=== PATIENT | female | born 1985 | race Caucasian/White ===

== ENCOUNTER → 2019-07-04 | Outpatient (CLI) | payer OTHER, SELFPAY | PROVIDERS: Family Provider Internal Medicine; Visit Provider Internal Medicine Hematology & Oncology | DX: C50.811 Malignant neoplasm of overlapping sites of right female breast (principal); C77.3 Secondary and unspecified malignant neoplasm of axilla and upper limb lymph nodes; Z17.0 Estrogen receptor positive status [ER+]; Z79.811 Long term (current) use of aromatase inhibitors; Z90.13 Acquired absence of bilateral breasts and nipples; Z92.3 Personal history of irradiation; Z92.21 Personal history of antineoplastic chemotherapy | CPT/HCPCS: 36591; 80053; 85025; 99214; J1642 ==

== ENCOUNTER 2020-01-19 15:35 | Outpatient (CLI) | payer BC, SELFPAY ==
--- NOTE | 2020-01-19 16:34 | ONC FU_ITS ---
Dr. Biggs follow up note Patient: Viviana Buckner Unit #: [id number]: 1985 Dicatated By: Corey Biggs M.D.Date of Visit:Jan 19, 2020 Onc Med Follow-up/Prog Note History of Present Illness: Sita Saenz is a 34-year-old female with history of right breast mass for 3 months. She underwent mammogram which showed a spiculated mass at 12:00 position of right breast and 1.5 cm mass in right axilla. Ultrasonogram of the right breast showed 4.2 cm mass at 12:00 position with 1.5 cm right axillary lymph node. On September 19, 2016, Mrs Buckner underwent ultrasound directed needle biopsy of the right breast. The pathology showed infiltrating ductal carcinoma grade 1 and right axillary lymph node biopsy shows positive for metastatic adenocarcinoma. ER positive @ 98%, ND positive @ 97%; HER-2/gregg negative (1+ per Qualitative IHC); Ki-67 35% high risk. CT PET scan done on 03/03/2017 showed marked increase of metabolic activity in the right breast; A single right superficial axillary lymph node shows metastatic involvement and no evidence of distant metastases. Mrs Buckner underwent bilateral mastectomy, with planned reconstruction. She currently has expanders. She is now considering bilateral salpingo-oophorectomy And/or hysterectomy. She began chemotherapy with dose dense doxorubicin and cyclophosphamide on 06/10/2017. She did complete 4 cycles and has transitioned to weekly paclitaxel with her first of twelve weeks starting on 08/12/2017. She has tolerated it well ,Finished her treatment on 11/11/2017 and start on tamoxifen 20 mg by mouth daily on 12/15/2017 status post post mastectomy radiation therapy patient recently underwent prophylactic/therapeutic bilateral oophorectomy and hysterectomy on 02/02/2018.Switched to Arimidex 1 mg by mouth daily on 06/30/2018 from tamoxifen.Later on switched to Aromasin.And 07/04/2019 again, at patient request she was switched back to Arimidex as patient said she had less side effect with Arimidex compared to Aromasin.Stop taking Arimidex on January 14, 2020 because of related side effects like generalized weakness and fatigue and musculoskeletal discomfort, weight gain, mood swings Interim history, 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 s/p right breast reconstruction and went to her original plastic surgeon in [facility]. Came for follow-up, denies any specific complaint except generalized weakness and fatigue and musculoskeletal discomfort, mood swings, as per patient her father is on hospice and has 5 kids to take care of including one with Asperger and going through emotions but denies any self harming thoughts. Because of all the side effects she decided to quit Arimidex on Thursday, January 14, 2020. Medications: Arimidex 1 Tablet (of 1 mg) Oral daily, cloNIDine HCl 1 Tablet (of 0.1 mg) Oral daily, hydrOXYzine HCl 1 Tablet (of 25 mg) Oral daily, Pristiq 1 Tablet (of 100 mg) Tablet SR 24 HR Oral daily, Propranolol HCl 1 Tablet (of 20 mg) Oral daily, Xyzal 1 Tablet (of 5 mg) Oral daily Allergies: No Known Allergies. Review of Systems: Constitutional - Her energy level is good. Appetite is good and weight is stable. No fever, chills, hot flashes, ENMT - No sinus congestion/drainage. No mouth sores. No sore throat or difficulty swallowing, Hematologic/Lymphatic - No abnormal bruising or bleeding, Respiratory - No shortness of breath. No cough. No pleuritic pain, Cardiovascular - No angina pain, Gastrointestinal - No nausea or vomiting. No heartburn or acid reflux. No diarrhea or constipation. No blood in the stool or black stools, Genitourinary (F) - No dysuria or hematuria. No urinary frequency. No urgency or incontinence, Musculoskeletal - No joint or bone pain, Neurologic - No headache or dizziness. No numbness/paresthesias or other focal neurologic symptoms, Psychiatric - No anxiety or depression. No insomnia. Vital Signs: Performed on Jan 19, 2020 15:46 Height - 65.00 in Weight - 188.0 lbs (HIGH) BSA - 1.93 sq.m BMI - 31.29 (HIGH) Temperature - 98.1 F (LOW) Pulse - 86 /min Respiration - 18 /min BP - 120/80 mm(hg) O2 Sat - 98 % Pain - 0 Performance Status: 0 - Fully active, able to carry on all predisease activities without restrictions. (ECOG) Physical Examination: Respiratory - Lungs are clear, Cardiovascular - Regular rate and rhythm of heart, Gastrointestinal - Soft, bowel sounds present, Extremities - No visible edema or rash. Lab/Imaging: Most recent lab results are not available for this patient. Impression: two foci of invasive ductal carcinoma, 2.7 cm and 0.7 cm in greatest dimension. Largest tumor focus is poorly differentiated, smaller tumor focus is moderately differentiated, margins free of carcinoma one out of 16 nodes positive for metastatic invasive ductal carcinoma metastatic focus is 1.7 cm in greatest dimension with extracapsular extension. Status post bilateral modified radical mastectomy now with expanders done on 04/30/2017 Pathological stage mpT2, N1a (extracapsular extension) IIB. Estrogen receptor 98%, progesterone receptors 82%, HER-2/gregg 1+ adjuvant chemotherapy with Adriamycin Cytoxan ???4, started on 06/08/2017 to 07/22/2017 in dose dense fashion , switched to weekly Taxol ???12 on 08/12/2017.till 11/11/17 s/p postmastectomy radiation therapy. Started on tamoxifen 20 mg by mouth daily on 12/15/2017 Later on on 06/30/2018 she was switched to Arimidex after she underwent prophylactic bilateral salpingo-oophorectomy and hysterectomy on 02/02/2018. Patient tried Arimidex for many months then it was held for one month because of progressive symptoms including hot flashes and generalized weakness and fatigue and muscle skeleton pain with that her symptoms improves somewhat and later on Arimidex was discontinued and switched to Aromasin. Then 07/04/2019 at patient request she was switched back to Arimidex as she thought Arimidex was better tolerated Status post prophylactic/therapeutic bilateral oophorectomy/hysterectomy done on 02/02/2018. Episode of palpitation etiology unclear could be due to anxiety or underlying cardiac pathology. Cardiac workup is in progress scheduled for cardiac monitoring and echocardiogram. Echocardiogram done on 09/04/2017 showed normal left ventricle size and ejection fraction. Headaches and chronic insomnia: unknown etiology ,could be due to steroids or stress/anxiety as a CT scan of head was done on 09/04/2017 showed no abnormality. Plan: Discussed with patient regarding her concerns and issues related to aromatase inhibitors, possible etiologies multifactorial including underlying stress due to his personal situation like her father is under hospice care and other possibility could be due to hormonal withdrawals further exacerbated by aromatase inhibitors. At this point will hold Arimidex for 2 more weeks and if there is no improvement in her symptoms then will consider restarting Arimidex and also recommended behavioral health evaluation, patient to think about. Patient will call us in 2 weeks, to decide whether to continue with Arimidex or may switch her to Aromasin for a month if tolerated then will continue same otherwise may try Femara. In the meantime we will flush her Port-A-Cath today and also draw her baseline CBC CMP and TSH And return to clinic in 6 weeks for follow-up Signed By: Corey Biggs M.D. <<Signature on File>>
[2020-01-19 17:14] LABS: Basophils # 0.1 10^3/uL (0.0-0.1); Basophils % 0.7 %; Eosinophils # 0.3 10^3/uL (0.0-0.8); Eosinophils % 2.7 %; Hematocrit 40.2 % (37.0-47.0); Hemoglobin 12.8 g/dL (11.5-15.3); Lymphocytes # 2.6 10^3/uL (0.8-4.8); Lymphocytes % 25.4 %; Mean Corpuscular HGB Conc 31.8 g/dL (30.0-36.0); Mean Corpuscular Hemoglobin 26.2 pg (28.0-34.0); Mean Corpuscular Volume 82.2 fL (81-99); Mean Platelet Volume 9.5 fL (7.4-10.4); Monocytes # 0.7 10^3/uL (0.2-0.9); Neutrophils # 6.46 10^3/uL (1.8-7.7); Neutrophils % 63.2 %; Nucleated Red Blood Cells % 0 %; Platelet Count 364 10^3/cmm (130-400); Red Blood Count 4.89 10^6/uL (4.1-5.3); Red Cell Distribution Width 13.6 % (12.1-15.1); White Blood Count 10.2 10^3/uL (4.0-10.0)
[2020-01-19 17:59] LABS: Alanine Aminotransferase 33 U/L (0-33); Albumin Level 4.6 g/dL (3.5-5.2); Alkaline Phosphatase 114 IU/L (35-105); Anion Gap 14.9 (5-19); Aspartate Amino Transferase 29 U/L (0-32); Blood Urea Nitrogen 12 mg/dL (6-20); Calcium 9.5 mg/dL (8.5-10.5); Carbon Dioxide 26 mmol/L (22-29); Chloride 101 mmol/L (98-107); Globulin 2.7 g/dL (1.3-4.6); Glomerular Filtration Rate 95.2 mL/min (90-130); Glucose 91 mg/dL (65-115); Osmolality Calculated 282 mOsm/kg (285-295); Potassium 3.9 mmol/L (3.5-5.1); Sodium 138 mmol/L (136-145); Thyroid Stimulating Hormone 0.99 uIU/mL (0.27-4.20); Total Bilirubin 0.2 mg/dL (0.15-1.2); Total Protein 7.3 g/dL (6.6-8.7)
== END 2020-01-19 15:36 | disposition home or self-care (01) ==
LOC: ONCMED 15:40
PROVIDERS: PCP Internal Medicine; Visit Provider Internal Medicine Hematology & Oncology
DX: C50.811 Malignant neoplasm of overlapping sites of right female breast (principal); C77.3 Secondary and unspecified malignant neoplasm of axilla and upper limb lymph nodes; Z17.0 Estrogen receptor positive status [ER+]; Z79.899 Other long term (current) drug therapy; Z79.811 Long term (current) use of aromatase inhibitors; Z92.3 Personal history of irradiation; Z92.21 Personal history of antineoplastic chemotherapy; Z90.13 Acquired absence of bilateral breasts and nipples
CPT/HCPCS: 36415; 80053; 84443; 85025; 96523; 99214

== ENCOUNTER 2020-03-01 15:26 | Outpatient (CLI) | payer BC, SELFPAY ==
--- NOTE | 2020-03-01 16:44 | ONC FU_ITS ---
Dr. Biggs follow up note Patient: Viviana Buckner Unit #: [id number]: 1985 Dicatated By: Corey Biggs M.D.Date of Visit:Mar 01, 2020 Onc Med Follow-up/Prog Note History of Present Illness: Sita Saenz is a 34-year-old female with history of right breast mass for 3 months. She underwent mammogram which showed a spiculated mass at 12:00 position of right breast and 1.5 cm mass in right axilla. Ultrasonogram of the right breast showed 4.2 cm mass at 12:00 position with 1.5 cm right axillary lymph node. On September 19, 2016, Mrs Buckner underwent ultrasound directed needle biopsy of the right breast. The pathology showed infiltrating ductal carcinoma grade 1 and right axillary lymph node biopsy shows positive for metastatic adenocarcinoma. ER positive @ 98%, DE positive @ 97%; HER-2/gregg negative (1+ per Qualitative IHC); Ki-67 35% high risk. CT PET scan done on 03/03/2017 showed marked increase of metabolic activity in the right breast; A single right superficial axillary lymph node shows metastatic involvement and no evidence of distant metastases. Mrs Buckner underwent bilateral mastectomy, with planned reconstruction. She currently has expanders. She is now considering bilateral salpingo-oophorectomy And/or hysterectomy. She began chemotherapy with dose dense doxorubicin and cyclophosphamide on 06/10/2017. She did complete 4 cycles and has transitioned to weekly paclitaxel with her first of twelve weeks starting on 08/12/2017. She has tolerated it well ,Finished her treatment on 11/11/2017 and start on tamoxifen 20 mg by mouth daily on 12/15/2017 status post post mastectomy radiation therapy patient recently underwent prophylactic/therapeutic bilateral oophorectomy and hysterectomy on 02/02/2018.Switched to Arimidex 1 mg by mouth daily on 06/30/2018 from tamoxifen.Later on switched to Aromasin.And 07/04/2019 again, at patient request she was switched back to Arimidex as patient said she had less side effect with Arimidex compared to Aromasin.Stop taking Arimidex on January 14, 2020 because of related side effects like generalized weakness and fatigue and musculoskeletal discomfort, weight gain, mood swings Interim history, 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 s/p right breast reconstruction and went to her original plastic surgeon in [facility]. Came for follow-up, denies any specific complaints, no fever chills, no nausea or vomiting, no diarrhea constipation, mood swings is also improving with Cymbalta, patient says she also started taking her Arimidex week after her last visit and has been tolerated well since then with occasionally hot flashes, sometimes maculopapular rash on upper neck and over shoulders but now clearing up.And also requesting Port-A-Cath removal Medications: Arimidex 1 Tablet (of 1 mg) Oral daily, cloNIDine HCl 1 Tablet (of 0.1 mg) Oral daily, DULoxetine HCl 1 Capsule (of 60 mg) Capsule Delayed Release Particles Oral daily, hydrOXYzine HCl 1 Tablet (of 25 mg) Oral daily, Pristiq 1 Tablet (of 100 mg) Tablet SR 24 HR Oral daily, Propranolol HCl 1 Tablet (of 20 mg) Oral daily, Xyzal 1 Tablet (of 5 mg) Oral daily Allergies: No Known Allergies. Review of Systems: Constitutional - Her energy level is good. Appetite is good and weight is stable. No fever, chills. Rare hot flashes, ENMT - No sinus congestion/drainage. No mouth sores. No sore throat or difficulty swallowing, Hematologic/Lymphatic - No abnormal bruising or bleeding, Respiratory - No shortness of breath. No cough. No pleuritic pain, Cardiovascular - No angina pain, Gastrointestinal - No nausea or vomiting. No heartburn or acid reflux. No diarrhea or constipation. No blood in the stool or black stools, Genitourinary (F) - No dysuria or hematuria. No urinary frequency. No urgency or incontinence, Musculoskeletal - No joint or bone pain, Neurologic - No headache or dizziness. No numbness/paresthesias or other focal neurologic symptoms, Psychiatric - No anxiety or depression. No insomnia. Vital Signs: Performed on Mar 01, 2020 15:37 Height - 65.00 in Weight - 188.2 lbs (HIGH) BSA - 1.93 sq.m BMI - 31.32 (HIGH) Temperature - 97.9 F (LOW) Pulse - 66 /min Respiration - 20 /min BP - 126/69 mm(hg) O2 Sat - 97 % Pain - 0 Performance Status: 0 - Fully active, able to carry on all predisease activities without restrictions. (ECOG) Physical Examination: Respiratory - Lungs are clear, Cardiovascular - Regular rate and rhythm of heart, Gastrointestinal - Soft bowel sounds present, Extremities - No edema. Lab/Imaging: Test performed on Jan 19, 2020 16:40 Sodium 138 mmol/L TSH 0.99 uIU/mL Potassium 3.9 mmol/L Chloride 101 mmol/L CO2 26 mmol/L Anion Gap 14.9 BUN 12 mg/dL Creatinine 0.7 mg/dL Cr Clearance (Est) 151.0100 mL/min eGFR 95.2 mL/min Glucose 91 mg/dL Calcium 9.5 mg/dL Protein, Total 7.3 g/dL Albumin 4.6 g/dL Globulin 2.7 g/dL Bilirubin, Total 0.2 mg/dL ALT (SGPT) 33 U/L AST (SGOT) 29 U/L Alkaline Phosphatase 114 IU/L WBC 10.2 10 3/uL RBC 4.89 10 6/uL HGB 12.8 g/dL HCT 40.2 % MCV 82.2 fL MCH 26.2 pg MCHC 31.8 g/dL RDW 13.6 % Platelet Count 364 10 3/cmm MPV 9.5 fL Neutrophils 6.46 10 3/uL Lymphocytes 2.6 10 3/uL Monocytes 0.7 10 3/uL Eosinophils 0.3 10 3/uL Basophils 0.1 10 3/uL Neutrophil % 63.2 % Lymphocyte % 25.4 % Monocyte % 7.0 % Eosinophil % 2.7 % Basophils % 0.7 % NRBC % 0 % Impression: two foci of invasive ductal carcinoma, 2.7 cm and 0.7 cm in greatest dimension. Largest tumor focus is poorly differentiated, smaller tumor focus is moderately differentiated, margins free of carcinoma one out of 16 nodes positive for metastatic invasive ductal carcinoma metastatic focus is 1.7 cm in greatest dimension with extracapsular extension. Status post bilateral modified radical mastectomy now with expanders done on 04/30/2017 Pathological stage mpT2, N1a (extracapsular extension) IIB. Estrogen receptor 98%, progesterone receptors 82%, HER-2/gregg 1+ adjuvant chemotherapy with Adriamycin Cytoxan ???4, started on 06/08/2017 to 07/22/2017 in dose dense fashion , switched to weekly Taxol ???12 on 08/12/2017.till 11/11/17 s/p postmastectomy radiation therapy. Started on tamoxifen 20 mg by mouth daily on 12/15/2017 Later on on 06/30/2018 she was switched to Arimidex after she underwent prophylactic bilateral salpingo-oophorectomy and hysterectomy on 02/02/2018. Patient tried Arimidex for many months then it was held for one month because of progressive symptoms including hot flashes and generalized weakness and fatigue and muscle skeleton pain with that her symptoms improves somewhat and later on Arimidex was discontinued and switched to Aromasin. Then 07/04/2019 at patient request she was switched back to Arimidex as she thought Arimidex was better tolerated Status post prophylactic/therapeutic bilateral oophorectomy/hysterectomy done on 02/02/2018. Episode of palpitation etiology unclear could be due to anxiety or underlying cardiac pathology. Cardiac workup is in progress scheduled for cardiac monitoring and echocardiogram. Echocardiogram done on 09/04/2017 showed normal left ventricle size and ejection fraction. Headaches and chronic insomnia: unknown etiology ,could be due to steroids or stress/anxiety as a CT scan of head was done on 09/04/2017 showed no abnormality. Plan: Discussed with patient regarding her question and concern about hormonal therapy and Port-A-Cath maintenance, at patient's request we will refer her to surgery for Port-A-Cath removal. In the meantime patient is tolerating Arimidex well so we will continue for total 5 years. And also advised to take vitamin D/calcium supplements. She return to clinic in 6 months with CMP. Signed By: Corey Biggs M.D. <<Signature on File>>
== END 2020-03-01 15:27 | disposition home or self-care (01) ==
LOC: ONCMED 15:26
PROVIDERS: PCP Internal Medicine; Visit Provider Internal Medicine Hematology & Oncology
DX: C50.811 Malignant neoplasm of overlapping sites of right female breast (principal); Z17.0 Estrogen receptor positive status [ER+]; C77.3 Secondary and unspecified malignant neoplasm of axilla and upper limb lymph nodes; R51 Headache; F51.04 Psychophysiologic insomnia; Z90.13 Acquired absence of bilateral breasts and nipples; Z79.811 Long term (current) use of aromatase inhibitors; Z95.828 Presence of other vascular implants and grafts
CPT/HCPCS: 99214

== ENCOUNTER → 2020-06-06 18:53 | Outpatient (BNVA) | payer BC, SELFPAY | PROVIDERS: PCP Internal Medicine; Visit Provider Surgery | DX: Z95.828 Presence of other vascular implants and grafts (principal) | CPT/HCPCS: 87635 ==

== ENCOUNTER 2020-06-11 07:04 | Day surgery (SDC) | payer BC, SELFPAY ==
[2020-06-08 12:04] VITALS: BMI 32.1
--- NOTE | 2020-06-11 07:23 | W.PM.OPSUD ---
Surgery/Procedure H&P Update DATE OF PROCEDURE: June 11, 2020 DATE H&P PERFORMED: 06/04/20 H&P UPDATE INFORMATION: I have reviewed H&P completed within last 30 days, I have examined patient prior to procedure and No changes to prior documentation PREOP DIAGNOSIS: Removal of Mediport PLANNED PROCEDURE: Operation Date: 06/11/20 09:30 Proposed Procedures p Portacath Removal [id number] c50.911(Not Applicable) - Zion Villa MD
[2020-06-11 07:36] VITALS: BP 139/88; PULSE 77; RESP 16; TEMP 36.4; O2SAT 97
[2020-06-11] MEDS: sodium chloride 0.9% 1,000 ML 30 ML IV (07:59)
--- NOTE | 2020-06-11 08:08 | ANES.PREANE2 ---
Pre-Anesthetic Assessment Pre-Anesthetic Assessment: Height/Weight: Height 1.65 m Weight 87.543 kg Temp Pulse Resp BP Pulse Ox 97.6 F 77 16 139/88 97 06/11/20 07:36 06/11/20 07:36 06/11/20 07:36 06/11/20 07:36 06/11/20 07:36 Preop Diagnosis: Removal of Mediport Proposed Procedure: Operation Date: 06/11/20 09:30 Proposed Procedures p Portacath Removal 99242 c50.911(Not Applicable) - Zion Villa MD Was Beta Bela taken within 24 hours: Yes Last intake: Intake Last Liquid Date 06/10/20 Last Liquid Time 22:00 Last Solid Date 06/10/20 Last Solid Time 19:00 Social: Social History: No alcohol and No tobacco Exam: Pre-Anes Outpt Exam: alert, oriented x 3, clear to auscultation bilaterally and regular rate & rhythm Airway: Submandibular: WNL Cervical ROM: WNL MP: 2 Dentition: Full Pulmonary: Pulmonary: None reported CV/HEM: CV/HEM: HTN : : None reported Hepatic: Hepatic: None reported GI: GI: None reported Metabolic: Metabolic: None reported Musc/skel: Musc/skel: None reported Neuropsych: Neuropsych: None reported Anesthetic Plan: ASA status: 2 Anesthesia: MAC Risk of > 500 ml blood loss (7ml/kg in children): No Meds/Allergies Current Medications: Current Medications Generic Name Dose Route Start Last Admin Trade Name Freq PRN Reason Stop Dose Admin Sodium Chloride 1,000 mls @ 30 ml s/hr 06/11/20 07:30 06/11/20 07:59 Sodium Chloride 0.9% IV 30 mls/hr .Q24H MESSI Administration PFSH Anesthesia PFSH: Medical History Breast cancer, right Essential tremor H/O malignant neoplasm of breast Surgical History H/O bilateral mastectomy 2016 H/O breast reconstruction LD flap on the right H/O section H/O oral surgery History of tonsillectomy Hx of cholecystectomy Port-A-Cath in place S/P OUSMANE-BSO Family History Father CAD (coronary artery disease) Diabetes Hypertension Mother Cancer endometrial cancer Grandmother Cancer maternal colon and ovarian Brother Hypertension Denies family history of Anesthesia complication Bleeding disorder Social History Smoking and tobacco status: current every day smoker Alcohol intake: never Household members: spouse Marital status: Current occupational status: employed History of recent travel: No Data Anesthesia Cardiac Studies: No Data to Display
[2020-06-11] MEDS: midazolam 1 mg/mL INJ 2 mL 2 MG IVP ×2 (08:11→10:13)
[2020-06-11] MEDS: lidocaine 1% INJ 20 mL (09:28)
[2020-06-11 09:44] VITALS: BP 113/73; PULSE 72; RESP 16; TEMP 36.2; O2SAT 97
--- NOTE | 2020-06-11 10:13 | SUR.PHASEII ---
PT C/O ANXIETY. OBTAINED ORDER FOR 2MG VERSED IV PUSH BY DR SARMIENTO.
[2020-06-11 10:21] VITALS: BP 143/99; PULSE 76; RESP 16; O2SAT 96
--- NOTE | 2020-06-11 12:42 | PM.OP ---
Operative Report Date of procedure: June 11, 2020 Pre-op Diagnosis: Removal of Mediport Post-op Diagnosis: 1: Breast cancer status post chemotherapy 2: Removal of Mediport Procedure Done: Removal of Mediport from the left subclavian vein Pathology: none sent Surgeon: Zion Villa Anesthesia: MAC Condition: stable Disposition: PACU Procedure: Patient was taken to the operating room and her right chest was prepped and draped in a sterile manner. 20 mL of 1% lidocaine with 0.5% Marcaine was infiltrated around the MediPort and catheter in the left subclavian vein. Using a 15 blade the previous incision was opened, the subcutaneous tissue was divided using electrocautery and MediPort along the catheter was dissected free from the surrounding subcutaneous tissue and removed entirely. The wound was irrigated with saline, hemostasis ensured with electrocautery and subcutaneous tissue was approximated using 3-0 Vicryl suture and skin was closed using running subcuticular 4-0 Monocryl suture. The patient was transferred to the recovery room in stable condition.
--- NOTE | 2020-06-11 15:49 | ANE.PACU2 ---
Inpatient post-anesthesia follow up: Airway intact: Yes Vital signs: Temperature 97.2 F Pulse Rate 76 Respiratory Rate 16 Blood Pressure 143/99 Pulse Oximetry 96 Oxygen Delivery Me thod Room Air Oxygen Flow Rate Fraction of Inspir ed Oxygen Hydration adequate: Yes Nausea and vomiting: No Pain level: 1 Mental status: Baseline
== END 2020-06-11 10:29 | disposition home or self-care (01) ==
PROVIDERS: PCP Internal Medicine; Visit Provider Surgery
PROC: (CPT 36589; principal; 2020-06-11 08:30)
DX: Z45.2 Encounter for adjustment and management of vascular access device (principal); Z85.3 Personal history of malignant neoplasm of breast; I10 Essential (primary) hypertension; Z82.49 Family history of ischemic heart disease and other diseases of the circulatory system; Z83.3 Family history of diabetes mellitus; Z80.0 Family history of malignant neoplasm of digestive organs; Z80.41 Family history of malignant neoplasm of ovary; F17.210 Nicotine dependence, cigarettes, uncomplicated
CPT/HCPCS: 36590; 12345; J0690; J2250; J2704; J3490; J7030

== ENCOUNTER 2020-09-06 09:08 | Outpatient (CLI) | payer BC, SELFPAY ==
[2020-09-06 10:03] LABS: Basophils # 0.1 10^3/uL (0.0-0.1); Basophils % 1.2 %; Eosinophils # 0.4 10^3/uL (0.0-0.8); Eosinophils % 4.2 %; Hematocrit 43.2 % (37.0-47.0); Hemoglobin 13.9 g/dL (11.5-15.3); Lymphocytes # 1.9 10^3/uL (0.8-4.8); Lymphocytes % 21.6 %; Mean Corpuscular HGB Conc 32.2 g/dL (30.0-36.0); Mean Corpuscular Hemoglobin 26.9 pg (28.0-34.0); Mean Corpuscular Volume 83.7 fL (81-99); Mean Platelet Volume 9.5 fL (7.4-10.4); Monocytes # 0.5 10^3/uL (0.2-0.9); Monocytes % 5.6 %; Neutrophils # 5.93 10^3/uL (1.8-7.7); Neutrophils % 66.9 %; Nucleated Red Blood Cells % 0 %; Platelet Count 437 10^3/cmm (130-400); Red Blood Count 5.16 10^6/uL (4.1-5.3); Red Cell Distribution Width 13.2 % (12.1-15.1); White Blood Count 8.9 10^3/uL (4.0-10.0)
[2020-09-06 10:04] LABS: Alanine Aminotransferase 20 U/L (0-33); Albumin Level 4.6 g/dL (3.5-5.2); Alkaline Phosphatase 114 IU/L (35-105); Anion Gap 13.5 (5-19); Aspartate Amino Transferase 19 U/L (0-32); Blood Urea Nitrogen 11 mg/dL (6-20); Calcium 9.8 mg/dL (8.5-10.5); Carbon Dioxide 28 mmol/L (22-29); Chloride 101 mmol/L (98-107); Globulin 3.1 g/dL (1.3-4.6); Glomerular Filtration Rate 70.8 mL/min (90-130); Glucose 107 mg/dL (65-115); Osmolality Calculated 288 mOsm/kg (285-295); Potassium 3.5 mmol/L (3.5-5.1); Sodium 139 mmol/L (136-145); Total Bilirubin 0.3 mg/dL (0.15-1.2); Total Protein 7.7 g/dL (6.6-8.7)
--- NOTE | 2020-09-06 16:13 | ONC FU_ITS ---
Dr. Biggs follow up note Patient: Viviana Buckner Unit #: [id number]: 1985 Dicatated By: Corey Biggs M.D.Date of Visit:Sep 06, 2020 Onc Med Follow-up/Prog Note History of Present Illness: Sita Saenz is a 35-year-old female with history of right breast mass for 3 months. She underwent mammogram which showed a spiculated mass at 12:00 position of right breast and 1.5 cm mass in right axilla. Ultrasonogram of the right breast showed 4.2 cm mass at 12:00 position with 1.5 cm right axillary lymph node. On September 19, 2016, Mrs Buckner underwent ultrasound directed needle biopsy of the right breast. The pathology showed infiltrating ductal carcinoma grade 1 and right axillary lymph node biopsy shows positive for metastatic adenocarcinoma. ER positive @ 98%, [place] positive @ 97%; HER-2/gregg negative (1+ per Qualitative IHC); Ki-67 35% high risk. CT PET scan done on 03/03/2017 showed marked increase of metabolic activity in the right breast; A single right superficial axillary lymph node shows metastatic involvement and no evidence of distant metastases. Mrs Buckner underwent bilateral mastectomy, with planned reconstruction. She currently has expanders. She is now considering bilateral salpingo-oophorectomy And/or hysterectomy. She began chemotherapy with dose dense doxorubicin and cyclophosphamide on 06/10/2017. She did complete 4 cycles and has transitioned to weekly paclitaxel with her first of twelve weeks starting on 08/12/2017. She has tolerated it well ,Finished her treatment on 11/11/2017 and start on tamoxifen 20 mg by mouth daily on 12/15/2017 status post post mastectomy radiation therapy patient recently underwent prophylactic/therapeutic bilateral oophorectomy and hysterectomy on 02/02/2018.Switched to Arimidex 1 mg by mouth daily on 06/30/2018 from tamoxifen.Later on switched to Aromasin.And 07/04/2019 again, at patient request she was switched back to Arimidex as patient said she had less side effect with Arimidex compared to Aromasin.Stop taking Arimidex on January 14, 2020 because of related side effects like generalized weakness and fatigue and musculoskeletal discomfort, weight gain, mood swings Interim history, 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 s/p right breast reconstruction and went to her original plastic surgeon in [facility]. Came for follow-up, denies any specific complaints, no fever chills, no nausea or vomiting, no diarrhea or constipation, no new bony pains, appetite is good, occasionally hot flashes, otherwise tolerating Arimidex well but noncompliant with vitamin D and calcium. Medications: Arimidex 1 Tablet (of 1 mg) Oral daily, cloNIDine HCl 1 Tablet (of 0.1 mg) Oral daily, DULoxetine HCl 1 Capsule (of 60 mg) Capsule Delayed Release Particles Oral daily, Propranolol HCl 1 Tablet (of 20 mg) Oral daily, traZODone HCl (50 mg) Tablet Oral at bedtime Allergies: No Known Allergies. Review of Systems: Review of Systems is not available for this patient. Vital Signs: Performed on Sep 06, 2020 15:40 Height - 65.00 in Weight - 188.4 lbs (HIGH) BSA - 1.93 sq.m BMI - 31.35 (HIGH) Temperature - 97.3 F (LOW) Pulse - 96 /min Respiration - 18 /min BP - 134/73 mm(hg) O2 Sat - 97 % Pain - 0 Fatigue - 0 Performance Status: 0 - Fully active, able to carry on all predisease activities without restrictions. (ECOG) Physical Examination: Respiratory - Lungs are clear to auscultation, Cardiovascular - Regular rate and rhythm of heart, Gastrointestinal - Soft, bowel sounds present, Extremities - No visible edema or rash. Lab/Imaging: Most recent lab results are not available for this patient. Impression: two foci of invasive ductal carcinoma, 2.7 cm and 0.7 cm in greatest dimension. Largest tumor focus is poorly differentiated, smaller tumor focus is moderately differentiated, margins free of carcinoma one out of 16 nodes positive for metastatic invasive ductal carcinoma metastatic focus is 1.7 cm in greatest dimension with extracapsular extension. Status post bilateral modified radical mastectomy now with expanders done on 04/30/2017 Pathological stage mpT2, N1a (extracapsular extension) IIB. Estrogen receptor 98%, progesterone receptors 82%, HER-2/gregg 1+ adjuvant chemotherapy with Adriamycin Cytoxan ???4, started on 06/08/2017 to 07/22/2017 in dose dense fashion , switched to weekly Taxol ???12 on 08/12/2017.till 11/11/17 s/p postmastectomy radiation therapy. Started on tamoxifen 20 mg by mouth daily on 12/15/2017 Later on on 06/30/2018 she was switched to Arimidex after she underwent prophylactic bilateral salpingo-oophorectomy and hysterectomy on 02/02/2018. Patient tried Arimidex for many months then it was held for one month because of progressive symptoms including hot flashes and generalized weakness and fatigue and muscle skeleton pain with that her symptoms improves somewhat and later on Arimidex was discontinued and switched to Aromasin. Then 07/04/2019 at patient request she was switched back to Arimidex as she thought Arimidex was better tolerated Status post prophylactic/therapeutic bilateral oophorectomy/hysterectomy done on 02/02/2018. Episode of palpitation etiology unclear could be due to anxiety or underlying cardiac pathology. Cardiac workup is in progress scheduled for cardiac monitoring and echocardiogram. Echocardiogram done on 09/04/2017 showed normal left ventricle size and ejection fraction. Headaches and chronic insomnia: unknown etiology ,could be due to steroids or stress/anxiety as a CT scan of head was done on 09/04/2017 showed no abnormality. Plan: .Discussed with patient regarding her labs white blood count 8.9 hemoglobin 13.9 hematocrit 43.2 platelets 7000 CMP within normal limits except alk phos 114 Clinically, patient doing well with no new signs symptom suggestive of recurrence of disease. Patient is tolerating her Arimidex well but she is noncompliant with vitamin D and calcium, patient is advised to continue with Arimidex along with vitamin D and calcium and then return to clinic in 6 months if alk phos continues to go up may consider bone scan although patient denies any bony pains or musculoskeletal discomfort. Patient also had her Port-A-Cath removed since her last visit Signed By: Corey Biggs M.D. <<Signature on File>>
== END 2020-09-06 09:09 | disposition home or self-care (01) ==
PROVIDERS: PCP Internal Medicine; Visit Provider Internal Medicine Hematology & Oncology
DX: C50.811 Malignant neoplasm of overlapping sites of right female breast (principal); Z17.0 Estrogen receptor positive status [ER+]; C77.3 Secondary and unspecified malignant neoplasm of axilla and upper limb lymph nodes; R51.9 Headache, unspecified; F51.04 Psychophysiologic insomnia; Z79.811 Long term (current) use of aromatase inhibitors; Z90.13 Acquired absence of bilateral breasts and nipples; Z92.3 Personal history of irradiation
CPT/HCPCS: 36415; 80053; 85025; 99214

== ENCOUNTER 2021-03-13 08:08 | Outpatient (CLI) | payer BC, SELFPAY ==
[2021-03-13 09:03] LABS: Basophils # 0.1 10^3/uL (0.0-0.1); Basophils % 1.4 %; Eosinophils # 0.2 10^3/uL (0.0-0.8); Eosinophils % 3.8 %; Hematocrit 39.4 % (37.0-47.0); Hemoglobin 13.1 g/dL (11.5-15.3); Lymphocytes # 1.6 10^3/uL (0.8-4.8); Lymphocytes % 24.8 %; Mean Corpuscular HGB Conc 33.2 g/dL (30.0-36.0); Mean Corpuscular Hemoglobin 28.1 pg (28.0-34.0); Mean Corpuscular Volume 84.5 fl (81-99); Mean Platelet Volume 9.3 fL (7.4-10.4); Monocytes # 0.5 10^3/uL (0.2-0.9); Monocytes % 7.8 %; Neutrophils # 3.91 10^3/uL (1.8-7.7); Neutrophils % 61.9 %; Nucleated Red Blood Cells % 0 %; Platelet Count 334 10^3/cmm (130-400); Red Blood Count 4.66 10^6/uL (4.1-5.3); Red Cell Distribution Width 12.6 % (12.1-15.1); White Blood Count 6.3 10^3/uL (4.0-10.0)
[2021-03-13 09:36] LABS: Alanine Aminotransferase 14 U/L (0-33); Albumin Level 4.1 g/dL (3.5-5.2); Alkaline Phosphatase 93 IU/L (35-105); Anion Gap 14.7 (5-19); Aspartate Amino Transferase 18 U/L (0-32); Blood Urea Nitrogen 14 mg/dL (6-20); Calcium 9.1 mg/dL (8.5-10.5); Carbon Dioxide 26 mmol/L (22-29); Chloride 103 mmol/L (98-107); Globulin 2.8 g/dL (1.3-4.6); Glomerular Filtration Rate 94.7 mL/min (90-130); Glucose 86 mg/dL (65-115); Osmolality Calculated 290 mOsm/kg (285-295); Potassium 3.7 mmol/L (3.5-5.1); Sodium 140 mmol/L (136-145); Total Bilirubin 0.3 mg/dL (0.15-1.2); Total Protein 6.9 g/dL (6.6-8.7)
== END 2021-03-13 08:09 | disposition home or self-care (01) ==
LOC: ONCMED 08:10
PROVIDERS: PCP Internal Medicine; Visit Provider Internal Medicine Hematology & Oncology
DX: C50.811 Malignant neoplasm of overlapping sites of right female breast (principal); Z17.0 Estrogen receptor positive status [ER+]; Z79.811 Long term (current) use of aromatase inhibitors
CPT/HCPCS: 36415; 80053; 85025

== ENCOUNTER 2021-06-03 08:23 | Outpatient (CLI) | payer BC, SELFPAY | END 2021-06-03 08:24 | disposition home or self-care (01) | LOC: LAB 08:24 | PROVIDERS: PCP Internal Medicine; Visit Provider Family Medicine | DX: R05.9 Cough, unspecified (principal) | CPT/HCPCS: 85378 ==

== ENCOUNTER 2021-06-07 12:19 | Outpatient (CLI) | payer BC, SELFPAY ==
[2021-06-07 12:35] VITALS: BP 121/76; PULSE 107; RESP 18; TEMP 36.4; O2SAT 98; BMI 29.9
[2021-06-07] MEDS: ondansetron 2 mg/ML SDV 2 mL 4 MG IVP (12:52)
[2021-06-07 12:58] VITALS: BP 114/66; PULSE 98; RESP 18; TEMP 36.1; O2SAT 99
[2021-06-07 14:16] VITALS: BP 125/81; PULSE 111; RESP 18; TEMP 37.2; O2SAT 96
== END 2021-06-07 12:20 | disposition home or self-care (01) ==
LOC: OPS 12:20
PROVIDERS: PCP Internal Medicine; Visit Provider Nurse Practitioner Family
DX: U07.1 COVID-19 (principal)
CPT/HCPCS: 96365; 96375; J2405

== ENCOUNTER 2021-09-10 13:28 | Outpatient (CLI) | payer BC, SELFPAY ==
[2021-09-10 14:30] LABS: Basophils # 0.1 10^3/uL (0.0-0.1); Basophils % 1.2 %; Eosinophils # 0.2 10^3/uL (0.0-0.8); Eosinophils % 2.7 %; Hematocrit 41.4 % (37.0-47.0); Hemoglobin 13.7 g/dL (11.5-15.3); Lymphocytes % 26.4 %; Mean Corpuscular HGB Conc 33.1 g/dL (30.0-36.0); Mean Corpuscular Hemoglobin 28.2 pg (28.0-34.0); Mean Corpuscular Volume 85.4 fl (81-99); Mean Platelet Volume 9.3 fL (7.4-10.4); Monocytes # 0.6 10^3/uL (0.2-0.9); Monocytes % 7.2 %; Neutrophils # 4.77 10^3/uL (1.8-7.7); Nucleated Red Blood Cells % 0 %; Platelet Count 349 10^3/cmm (130-400); Red Blood Count 4.85 10^6/uL (4.1-5.3); Red Cell Distribution Width 12.6 % (12.1-15.1); White Blood Count 7.7 10^3/uL (4.0-10.0)
[2021-09-10 14:50] LABS: Alanine Aminotransferase 24 U/L (0-33); Albumin Level 4.5 g/dL (3.5-5.2); Alkaline Phosphatase 98 IU/L (35-105); Anion Gap 17.3 (5-19); Aspartate Amino Transferase 26 U/L (0-32); Blood Urea Nitrogen 17 mg/dL (6-20); Calcium 9.9 mg/dL (8.5-10.5); Carbon Dioxide 22 mmol/L (22-29); Chloride 106 mmol/L (98-107); Globulin 2.9 g/dL (1.3-4.6); Glomerular Filtration Rate 80.7 mL/min (90-130); Glucose 104 mg/dL (65-115); Osmolality Calculated 294 mOsm/kg (285-295); Potassium 4.3 mmol/L (3.5-5.1); Sodium 141 mmol/L (136-145); Total Bilirubin 0.2 mg/dL (0.15-1.2); Total Protein 7.4 g/dL (6.6-8.7)
--- NOTE | 2021-09-11 17:46 | ONC FU_ITS ---
Dr. Biggs follow up note Patient: Viviana Buckner Unit #: [id number]: 1985 Dicatated By: Corey Biggs M.D.Date of Visit:Sep 10, 2021 Onc Med Follow-up/Prog Note History of Present Illness: Sita Saenz is a 36-year-old female with history of right breast mass for 3 months. She underwent mammogram which showed a spiculated mass at 12:00 position of right breast and 1.5 cm mass in right axilla. Ultrasonogram of the right breast showed 4.2 cm mass at 12:00 position with 1.5 cm right axillary lymph node. On September 19, 2016, Mrs Buckner underwent ultrasound directed needle biopsy of the right breast. The pathology showed infiltrating ductal carcinoma grade 1 and right axillary lymph node biopsy shows positive for metastatic adenocarcinoma. ER positive @ 98%, [place] positive @ 97%; HER-2/gregg negative (1+ per Qualitative IHC); Ki-67 35% high risk. CT PET scan done on 03/03/2017 showed marked increase of metabolic activity in the right breast; A single right superficial axillary lymph node shows metastatic involvement and no evidence of distant metastases. Mrs Buckner underwent bilateral mastectomy, with planned reconstruction. She currently has expanders. She is now considering bilateral salpingo-oophorectomy And/or hysterectomy. She began chemotherapy with dose dense doxorubicin and cyclophosphamide on 06/10/2017. She did complete 4 cycles and has transitioned to weekly paclitaxel with her first of twelve weeks starting on 08/12/2017. She has tolerated it well ,Finished her treatment on 11/11/2017 and start on tamoxifen 20 mg by mouth daily on 12/15/2017 status post post mastectomy radiation therapy patient recently underwent prophylactic/therapeutic bilateral oophorectomy and hysterectomy on 02/02/2018.Switched to Arimidex 1 mg by mouth daily on 06/30/2018 from tamoxifen.Later on switched to Aromasin.And 07/04/2019 again, at patient request she was switched back to Arimidex as patient said she had less side effect with Arimidex compared to Aromasin.Stop taking Arimidex on January 14, 2020 because of related side effects like generalized weakness and fatigue and musculoskeletal discomfort, weight gain, mood swings Interim history, patient did develop complication with bilateral breast drawer in dobby loom and now, as per patient she would not consider prosthesis rather her surgeon may use her own body tissue to reconstruct her bilateral breasts. s/p right breast reconstruction and went to her original plastic surgeon in [facility]. Came for follow-up, denies any specific complaints, no fever chills, no nausea or vomiting, no diarrhea constipation, but heart flashes somewhat controlled with antidepressant duloxetine. Otherwise tolerating Arimidex/vitamin D/calcium well Medications: Arimidex 1 Tablet (of 1 mg) Oral daily, Calcium + D Tablet, chewable Oral daily, cloNIDine HCl 1 Tablet (of 0.1 mg) Oral daily, DULoxetine HCl 1 Capsule (of 60 mg) Capsule Delayed Release Particles Oral daily, Omeprazole 1 Tablet Tablet, enteric coated Oral daily, Propranolol HCl (20 mg) Tablet Oral Take as Directed, traZODone HCl (50 mg) Tablet Oral at bedtime Allergies: No Known Allergies. Review of Systems: Review of Systems is not available for this patient. Vital Signs: Performed on Sep 10, 2021 15:06 Height - 65.00 in Weight - 192.2 lbs (HIGH) BSA - 1.94 sq.m BMI - 31.98 (HIGH) Temperature - 97.4 F (LOW) Pulse - 92 /min Respiration - 16 /min BP - 140/85 mm(hg) O2 Sat - 98 % Pain - 0 Fatigue - 3 Performance Status: 0 - Fully active, able to carry on all predisease activities without restrictions. (ECOG) Physical Examination: Respiratory - Lungs are clear to auscultation, Cardiovascular - Regular rate and rhythm of heart, Gastrointestinal - Soft, bowel sounds present, Extremities - No visible edema. Lab/Imaging: Most recent lab results are not available for this patient. Impression: two foci of invasive ductal carcinoma, 2.7 cm and 0.7 cm in greatest dimension. Largest tumor focus is poorly differentiated, smaller tumor focus is moderately differentiated, margins free of carcinoma one out of 16 nodes positive for metastatic invasive ductal carcinoma metastatic focus is 1.7 cm in greatest dimension with extracapsular extension. Status post bilateral modified radical mastectomy now with expanders done on 04/30/2017 Pathological stage mpT2, N1a (extracapsular extension) IIB. Estrogen receptor 98%, progesterone receptors 82%, HER-2/gregg 1+ adjuvant chemotherapy with Adriamycin Cytoxan ???4, started on 06/08/2017 to 07/22/2017 in dose dense fashion , switched to weekly Taxol ???12 on 08/12/2017.till 11/11/17 s/p postmastectomy radiation therapy. Started on tamoxifen 20 mg by mouth daily on 12/15/2017 Later on on 06/30/2018 she was switched to Arimidex after she underwent prophylactic bilateral salpingo-oophorectomy and hysterectomy on 02/02/2018. Patient tried Arimidex for many months then it was held for one month because of progressive symptoms including hot flashes and generalized weakness and fatigue and muscle skeleton pain with that her symptoms improves somewhat and later on Arimidex was discontinued and switched to Aromasin. Then 07/04/2019 at patient request she was switched back to Arimidex as she thought Arimidex was better tolerated Status post prophylactic/therapeutic bilateral oophorectomy/hysterectomy done on 02/02/2018. Episode of palpitation etiology unclear could be due to anxiety or underlying cardiac pathology. Cardiac workup is in progress scheduled for cardiac monitoring and echocardiogram. Echocardiogram done on 09/04/2017 showed normal left ventricle size and ejection fraction. Headaches and chronic insomnia: unknown etiology ,could be due to steroids or stress/anxiety as a CT scan of head was done on 09/04/2017 showed no abnormality. Plan: Discussed with patient regarding her labs white blood count 7.7 hemoglobin 13.7 hematocrit 41.4 platelets 349,000 CMP within normal limits Clinically, patient doing well with no new signs symptoms history of recurrence of disease, tolerating Arimidex/vitamin D/calcium well, will continue with same and return to clinic in 6 months with CBC CMP As for the hot flashes are concerned patient is on duloxetine, for depression/anxiety, as per patient it is helping her some especially musculoskeletal pain and mood swings, otherwise tolerating Arimidex/vitamin D/calcium well. Signed By: Corey Biggs M.D. <<Signature on File>>
== END 2021-09-10 13:29 | disposition home or self-care (01) ==
LOC: ONCMED 13:31
PROVIDERS: PCP Internal Medicine; Visit Provider Internal Medicine Hematology & Oncology
DX: C50.811 Malignant neoplasm of overlapping sites of right female breast (principal); C50.812 Malignant neoplasm of overlapping sites of left female breast; Z17.0 Estrogen receptor positive status [ER+]; Z90.13 Acquired absence of bilateral breasts and nipples; E55.9 Vitamin D deficiency, unspecified; R51.9 Headache, unspecified; F51.04 Psychophysiologic insomnia; F41.9 Anxiety disorder, unspecified; Z79.818 Long term (current) use of other agents affecting estrogen receptors and estrogen levels; Z79.52 Long term (current) use of systemic steroids; Z79.899 Other long term (current) drug therapy; Z92.21 Personal history of antineoplastic chemotherapy; Z92.25 Personal history of immunosuppression therapy; Z92.3 Personal history of irradiation
CPT/HCPCS: 36415; 80053; 85025; 99214

== ENCOUNTER 2021-10-26 08:54 | Observation (INO) | payer BC, SELFPAY ==
[2021-10-26] VITALS (13 sets, daily range): BP systolic 114–151; BP diastolic 69–102; PULSE 86–129; RESP 14–22; TEMP 36.7–36.8; O2SAT 94–98; BMI 29.9; BMI 32.5
--- NOTE | 2021-10-26 09:39 | ED_ITS ---
Documented by User: WYATT Milan 10/26/21 14:09 HPI - Female Genitourinary General: Chief complaint: Urogenital-Female Stated complaint: possible kidney stone Time Seen by Provider: 10/26/21 09:31 Source: patient Mode of arrival: ambulatory Limitations: no limitations History of Present Illness: Patient is a 36-year-old female presents to ED today with a complaint of acute onset left lower back pain that began around 6 AM this morning. Patient tells me she has a history of kidney/ureter stones that were diagnosed when she was 18 years old and states this pain feels identical. She tells me she is not having any urinary symptoms as dysuria, hesitancy, or urgency. Later in the visit while giving a UA sample she did have hematuria. Patient feels incredibly nauseous. She states pain is wrapping around into her left lower abdomen. Normal bowel movements. Patient has not been running fevers. PMH is significant for breast cancer. MD elicited complaint: back pain and flank pain Onset (ago): hour(s) Location of symptoms: low back and flank Severity: severe Severity scale (1-10): 10 Quality of pain: sharp Consistency: constant Vaginal discharge: none Vaginal bleeding: none Exacerbating factors: none Relieving factors: none Associated symptoms: Reports abdominal pain and nausea; Deny headache(s) Treatment prior to arrival: none Patient : No Review of Systems Const: Denies: fever(s), chills, body aches, fatigue or malaise Card: Denies: chest pain Resp: Denies: dyspnea GI: Reports: abdominal pain and nausea; Denies: vomiting, hematemesis, diarrhea or change in bowel habits : Reports: flank pain and hematuria; Denies: difficulty voiding, dysuria, urinary frequency, urinary urgency or urinary hesitancy Musc: Reports: back pain; Denies: neck pain, extremity pain, extremity swelling, joint pain or joint swelling Skin/Breast: Denies: rash Neuro: Denies: headache(s), numbness in extremities, weakness in extremities, sensory changes or dizziness [facility] ED PFSH: Medical History Breast cancer, right Essential tremor H/O malignant neoplasm of breast Surgical History H/O bilateral mastectomy 2016 H/O breast reconstruction LD flap on the right H/O section H/O oral surgery History of tonsillectomy Hx of cholecystectomy Port-A-Cath in place removed 06/11/20 S/P OUSMANE-BSO Family History Father CAD (coronary artery disease) Diabetes Hypertension Mother Cancer endometrial cancer Grandmother Cancer maternal colon and ovarian Brother Hypertension Denies family history of Anesthesia complication Bleeding disorder Social History Smoking and tobacco status: current every day smoker Alcohol intake: never Household members: spouse Marital status: Current occupational status: employed History of recent travel: No Physical Exam Const: COMMON NORMALS: patient oriented x3, no limitations, alert and well nourished GENERAL APPEARANCE: cooperative and in distress (significant discomfort to L lower back/flank) HENMT: COMMON NORMALS: normocephalic and atraumatic HEAD & SCALP: normocephalic and atraumatic Resp: COMMON NORMALS: normal respiratory effort and clear to auscultation bilaterally AUSCULTATION: clear to auscultation bilaterally Cardio: COMMON NORMALS: regular rate and regular rhythm RATE: regular rate RHYTHM: regular rhythm GI: COMMON NORMALS: Normal to inspection, nondistended, normoactive bowel sounds present, Soft to palpation, No hepatosplenomegaly present and no masses AUSCULTATION: Yes normoactive bowel sounds PALPATION: Yes Soft to palpation, Yes Tenderness to palpation present (GI) (L lower abdomen) and Yes No hepatosplenomegaly present : COMMON NORMALS: Yes no CVA tenderness (tenderness below L CVA) BLADDER/KIDNEY EXAM: Yes no CVA tenderness (tenderness below L CVA) Back/Pelvis: COMMON NORMALS: no CVA tenderness (tenderness below L CVA), thoracic and lumbar spine normal to inspection and no thoracic nor lumbar tenderness Extremity: COMMON NORMALS: normal to inspection GENERAL: Yes normal exam except as noted Neuro: [place] COMA SCALE: document GCS findings [place] coma scale eye opening: Spontaneous [place] coma scale verbal response: Orientated [place] coma scale motor response: Obey commands [place] coma scale total score: 15 COMMON NORMALS: patient oriented x3 SENSORIUM/ORIENTATION: Yes alert Skin: COMMON NORMALS: no rashes or lesions noted GENERAL SKIN EXAM: no rashes or lesions noted Course Vital Signs: Vital signs: Vital Signs Pulse Rate 87 10/26/21 09:22 Respiratory Rate 14 10/26/21 14:21 Blood Pressure 151/102 10/26/21 09:22 Pulse Oximetry 94 10/26/21 14:21 MDM - Female Medical Decision Making Despite multiple doses of IV pain medications I cannot adequately control patient's pain. She states she doesn't feel like pain could be controlled at home with oral medications therefore patient will require hospitalization. She has a 4-5mm distal left ureter stone causing mild hydro. Her vitals are stable-a little hypertensive most likely secondary to pain. Labs/urine show a white count of 11.4, normal kidney functions, and suspicion for UTI based on 25-40 WBCs, 2+ bacterial, and trace leuks-will culture this. Spoke to Dr. Rojas who will admit to his service. Dr. Mina aware of patient and will place admit orders. Lab Data : 10/26/21 10:28 10/26/21 10:28 Radiology Impressions Abdomen/Pelvis CT 10/26/21 09:39 IMPRESSION: Mild left hydroureteronephrosis secondary to a 4-5 mm calculus in the distal left ureter at the level of the pelvic brim. COMMENTS: Consistent with the [employer]'s Incidental Findings Committee white paper (J Am Sharon Radiol 2018): Any incidental renal lesion less than 1 cm or classified as too small to characterize, or any incidental cystic renal lesion characterized as simple-appearing, is likely benign. No follow-up imaging is recommended for these lesions per consensus recommendations based on imaging criteria. Laboratory Results WBC 11.4 10^3/uL (4.0-10.0) H 10/26/21 10:28 RBC 5.18 10^6/uL (4.1-5.3) 10/26/21 10:28 Hgb 14.2 g/dL (11.5-15.3) 10/26/21 10:28 Hct 42.4 % (37.0-47.0) 10/26/21 10:28 MCV 81.9 fl (81-99) 10/26/21 10:28 MCH 27.4 pg (28.0-34.0) L 10/26/21 10:28 MCHC 33.5 g/dL (30.0-36.0) 10/26/21 10:28 RDW 12.2 % (12.1-15.1) 10/26/21 10:28 Plt Count 347 10^3/cmm (130-400) 10/26/21 10:28 MPV 9.2 fL (7.4-10.4) 10/26/21 10:28 Neut % (Auto) 81.1 % 10/26/21 10:28 Lymph % (Auto) 11.5 % 10/26/21 10:28 [place] % (Auto) 5.2 % 10/26/21 10:28 Eos % (Auto) 1.0 % 10/26/21 10:28 Baso % (Auto) 0.6 % 10/26/21 10:28 Neut # (Auto) 9.27 10^3/uL (1.8-7.7) H 10/26/21 10:28 Lymph # (Auto) 1.3 10^3/uL (0.8-4.8) 10/26/21 10:28 [place] # (Auto) 0.6 10^3/uL (0.2-0.9) 10/26/21 10:28 Eos # (Auto) 0.1 10^3/uL (0.0-0.8) 10/26/21 10:28 Baso # (Auto) 0.1 10^3/uL (0.0-0.1) 10/26/21 10:28 Nucleated RBC % (auto) 0 % 10/26/21 10:28 Nucleated RBCs # 0.0 /100WBC 10/26/21 10:28 Sodium 133 mmol/L (136-145) L 10/26/21 10:28 Potassium 4.1 mmol/L (3.5-5.1) 10/26/21 10:28 Chloride 101 mmol/L (98-107) 10/26/21 10:28 Carbon Dioxide 21 mmol/L (22-29) L 10/26/21 10:28 Anion Gap 15.1 (5-19) 10/26/21 10:28 BUN 16 mg/dL (6-20) 10/26/21 10:28 Creatinine 0.7 mg/dL (0.5-0.9) 10/26/21 10:28 GFR Calculation 94.2 mL/min (90-130) 10/26/21 10:28 Glucose 122 mg/dL (65-115) H 10/26/21 10:28 Calculated Osmolality 278 mOsm/kg (285-295) L 10/26/21 10:28 Calcium 9.1 mg/dL (8.5-10.5) 10/26/21 10:28 Total Bilirubin 0.4 mg/dL (0.15-1.2) 10/26/21 10:28 AST 27 U/L (0-32) 10/26/21 10:28 ALT 27 U/L (0-33) 10/26/21 10:28 Alkaline Phosphatase 109 IU/L (35-105) H 10/26/21 10:28 Total Protein 7.7 g/dL (6.6-8.7) 10/26/21 10:28 Albumin 4.5 g/dL (3.5-5.2) 10/26/21 10:28 Globulin 3.2 g/dL (1.3-4.6) 10/26/21 10:28 HCG, Qual Negative (Negative) 10/26/21 10:28 Urine Color Aria (Yellow) 10/26/21 11:26 Urine Appearance Cloudy (CLEAR) 10/26/21 11:26 Urine pH 7 (5-7) 10/26/21 11:26 Ur Specific [place] 1.015 (1.005-1.030) 10/26/21 11:26 Urine Protein 1+ (Negative) H 10/26/21 11:26 Urine Glucose (UA) Norm (Normal) 10/26/21 11:26 Urine Ketones 1+ (Negative) H 10/26/21 11:26 Urine Blood 3+ (Negative) H 10/26/21 11:26 Urine Nitrate Negative (Negative) 10/26/21 11:26 Urine Bilirubin 1+ (Negative) H 10/26/21 11:26 Urine Urobilinogen 1 mg/dL (Negative) H 10/26/21 11:26 Ur Leukocyte Esterase Trace (Negative) H 10/26/21 11:26 Urine RBC Too numerous to cnt /hpf (0-2) H 10/26/21 11:26 Urine WBC 25-40 /hpf (0-5) H 10/26/21 11:26 Ur Squamous Epith Cells Rare /hpf (0-5) 10/26/21 11:26 Amorphous Sediment Not Reportable 10/26/21 11:26 Urine Bacteria 2+ /hpf (NONE) H 10/26/21 11:26 Urine Mucus 1+ /hpf 10/26/21 11:26 Discharge Plan Discharge Patient Disposition: Admitted As Inpatient Clinical Impression: Calculus of distal left ureter Condition: Stable 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 Documented by User: Arron Mina DO 10/26/21 14:51 HPI - Female Genitourinary General: Chief complaint: Urogenital-Female Stated complaint: possible kidney stone Time Seen by Provider: 10/26/21 09:31 PFSH ED PFSH: Medical History Breast cancer, right Essential tremor H/O malignant neoplasm of breast Surgical History H/O bilateral mastectomy 2016 H/O breast reconstruction LD flap on the right H/O section H/O oral surgery History of tonsillectomy Hx of cholecystectomy Port-A-Cath in place removed 06/11/20 S/P OUSMANE-BSO Family History Father CAD (coronary artery disease) Diabetes Hypertension Mother Cancer endometrial cancer Grandmother Cancer maternal colon and ovarian Brother Hypertension Denies family history of Anesthesia complication Bleeding disorder Social History Smoking and tobacco status: current every day smoker Alcohol intake: never Household members: spouse Marital status: Current occupational status: employed History of recent travel: No Physical Exam Neuro: [place] COMA SCALE: document GCS findings [place] coma scale total score: 15 Course 2 Vital Signs: Vital signs: Vital Signs Pulse Rate 87 04/23/22 09:22 Respiratory Rate 14 10/26/21 14:21 Blood Pressure 151/102 10/26/21 09:22 Pulse Oximetry 94 10/26/21 14:21 MDM - Female Medical Decision Making Despite multiple doses of IV pain medications I cannot adequately control patient's pain. She states she doesn't feel like pain could be controlled at home with oral medications therefore patient will require hospitalization. She has a 4-5mm distal left ureter stone causing mild hydro. Her vitals are stable-a little hypertensive most likely secondary to pain. Labs/urine show a white count of 11.4, normal kidney functions, and suspicion for UTI based on 25-40 WBCs, 2+ bacterial, and trace leuks-will culture this. Spoke to Dr. Rojas who will admit to his service. Dr. Mina aware of patient and will place admit orders. Discussed with Kathy Fleming reviewed chart including labs. Will admit patient is not able to get pain controlled in the ER will require inpatient care. Dr. Rojas will be admitting orders written. Lab Data : 10/26/21 10:28 10/26/21 10:28 Radiology Impressions Abdomen/Pelvis CT 10/26/21 09:39 IMPRESSION: Mild left hydroureteronephrosis secondary to a 4-5 mm calculus in the distal left ureter at the level of the pelvic brim. COMMENTS: Consistent with the [employer]'s Incidental Findings Committee white paper (J Am Sharon Radiol 2018): Any incidental renal lesion less than 1 cm or classified as too small to characterize, or any incidental cystic renal lesion characterized as simple-appearing, is likely benign. No follow-up imaging is recommended for these lesions per consensus recommendations based on imaging criteria. Laboratory Results WBC 11.4 10^3/uL (4.0-10.0) H 10/26/21 10:28 RBC 5.18 10^6/uL (4.1-5.3) 10/26/21 10:28 Hgb 14.2 g/dL (11.5-15.3) 10/26/21 10:28 Hct 42.4 % (37.0-47.0) 10/26/21 10:28 MCV 81.9 fl (81-99) 10/26/21 10:28 MCH 27.4 pg (28.0-34.0) L 10/26/21 10:28 MCHC 33.5 g/dL (30.0-36.0) 10/26/21 10:28 RDW 12.2 % (12.1-15.1) 10/26/21 10:28 Plt Count 347 10^3/cmm (130-400) 10/26/21 10:28 MPV 9.2 fL (7.4-10.4) 10/26/21 10:28 Neut % (Auto) 81.1 % 10/26/21 10:28 Lymph % (Auto) 11.5 % 10/26/21 10:28 [place] % (Auto) 5.2 % 10/26/21 10:28 Eos % (Auto) 1.0 % 10/26/21 10:28 Baso % (Auto) 0.6 % 10/26/21 10:28 Neut # (Auto) 9.27 10^3/uL (1.8-7.7) H 10/26/21 10:28 Lymph # (Auto) 1.3 10^3/uL (0.8-4.8) 10/26/21 10:28 [place] # (Auto) 0.6 10^3/uL (0.2-0.9) 10/26/21 10:28 Eos # (Auto) 0.1 10^3/uL (0.0-0.8) 10/26/21 10:28 Baso # (Auto) 0.1 10^3/uL (0.0-0.1) 10/26/21 10:28 Nucleated RBC % (auto) 0 % 10/26/21 10:28 Nucleated RBCs # 0.0 /100WBC 10/26/21 10:28 Sodium 133 mmol/L (136-145) L 10/26/21 10:28 Potassium 4.1 mmol/L (3.5-5.1) 10/26/21 10:28 Chloride 101 mmol/L (98-107) 10/26/21 10:28 Carbon Dioxide 21 mmol/L (22-29) L 10/26/21 10:28 Anion Gap 15.1 (5-19) 10/26/21 10:28 BUN 16 mg/dL (6-20) 10/26/21 10:28 Creatinine 0.7 mg/dL (0.5-0.9) 10/26/21 10:28 GFR Calculation 94.2 mL/min (90-130) 10/26/21 10:28 Glucose 122 mg/dL (65-115) H 10/26/21 10:28 Calculated Osmolality 278 mOsm/kg (285-295) L 10/26/21 10:28 Calcium 9.1 mg/dL (8.5-10.5) 10/26/21 10:28 Total Bilirubin 0.4 mg/dL (0.15-1.2) 10/26/21 10:28 AST 27 U/L (0-32) 10/26/21 10:28 ALT 27 U/L (0-33) 10/26/21 10:28 Alkaline Phosphatase 109 IU/L (35-105) H 10/26/21 10:28 Total Protein 7.7 g/dL (6.6-8.7) 10/26/21 10:28 Albumin 4.5 g/dL (3.5-5.2) 10/26/21 10:28 Globulin 3.2 g/dL (1.3-4.6) 10/26/21 10:28 HCG, Qual Negative (Negative) 10/26/21 10:28 Urine Color Aria (Yellow) 10/26/21 11:26 Urine Appearance Cloudy (CLEAR) 10/26/21 11:26 Urine pH 7 (5-7) 10/26/21 11:26 Ur Specific [place] 1.015 (1.005-1.030) 10/26/21 11:26 Urine Protein 1+ (Negative) H 10/26/21 11:26 Urine Glucose (UA) Norm (Normal) 10/26/21 11:26 Urine Ketones 1+ (Negative) H 10/26/21 11:26 Urine Blood 3+ (Negative) H 10/26/21 11:26 Urine Nitrate Negative (Negative) 10/26/21 11:26 Urine Bilirubin 1+ (Negative) H 10/26/21 11:26 Urine Urobilinogen 1 mg/dL (Negative) H 10/26/21 11:26 Ur Leukocyte Esterase Trace (Negative) H 10/26/21 11:26 Urine RBC Too numerous to cnt /hpf (0-2) H 10/26/21 11:26 Urine WBC 25-40 /hpf (0-5) H 10/26/21 11:26 Ur Squamous Epith Cells Rare /hpf (0-5) 10/26/21 11:26 Amorphous Sediment Not Reportable 10/26/21 11:26 Urine Bacteria 2+ /hpf (NONE) H 10/26/21 11:26 Urine Mucus 1+ /hpf 10/26/21 11:26 Discharge Plan Discharge Patient Disposition: Admitted As Inpatient Clinical Impression: Calculus of distal left ureter Condition: Stable 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
--- NOTE | 2021-10-26 09:39 | CTR_ITS ---
PROCEDURE INFORMATION: Exam: CT Abdomen And Pelvis Without Contrast Exam date and time: 10/26/2021 11:00 AM Age: 36 years old Clinical indication: Abdominal pain; Flank; Left; Prior surgery; Surgery type: Gb, hysto breast; Additional info: L flank/back/abdomen pain TECHNIQUE: Imaging protocol: Computed tomography of the abdomen and pelvis without contrast. Radiation optimization: All CT scans at this facility use at least one of these dose optimization techniques: automated exposure control; mA and/or kV adjustment per patient size (includes targeted exams where dose is matched to clinical indication); or iterative reconstruction. COMPARISON: [facility]cology Scope Images 02/02/2018 3:40 AM RADIATION DOSE METRICS: Total DLP (mGy-cm): 1324 FINDINGS: Lungs: Calcified right lower lobe granuloma. Liver: Normal. No mass. Gallbladder and bile ducts: Cholecystectomy. Pancreas: Normal. No ductal dilation. Spleen: Normal. No splenomegaly. Adrenal glands: Normal. No mass. Kidneys and ureters: Right lower pole renal cyst. Punctate nonobstructing bilateral renal calculi are seen. Mild left hydroureteronephrosis secondary to a 4-5 mm calculus in the distal left ureter at the level of the pelvic brim. Stomach and bowel: Unremarkable. No obstruction. No mucosal thickening. Appendix: No evidence of appendicitis. Intraperitoneal space: Unremarkable. No free air. No significant fluid collection. Arteries: Unremarkable. No abdominal aortic aneurysm. Lymph nodes: Unremarkable. No enlarged lymph nodes. Urinary bladder: Unremarkable as visualized. Reproductive: Hysterectomy. Bones/joints: Unremarkable. No acute fracture. Soft tissues: Bilateral breast implants. CT/CT kidney stone [id number] IMPRESSION: Mild left hydroureteronephrosis secondary to a 4-5 mm calculus in the distal left ureter at the level of the pelvic brim. COMMENTS: Consistent with the [employer]'s Incidental Findings Committee white paper (J Am Sharon Radiol 2018): Any incidental renal lesion less than 1 cm or classified as too small to characterize, or any incidental cystic renal lesion characterized as simple-appearing, is likely benign. No follow-up imaging is recommended for these lesions per consensus recommendations based on imaging criteria.
[2021-10-26] MEDS: morphine 4 mg/mL SDV 1 mL IM (10:01)
[2021-10-26] MEDS: ondansetron 2 mg/ML SDV 2 mL 4 MG IM (10:01)
[2021-10-26 10:38] LABS: Basophils # 0.1 10^3/uL (0.0-0.1); Basophils % 0.6 %; Eosinophils # 0.1 10^3/uL (0.0-0.8); Hematocrit 42.4 % (37.0-47.0); Hemoglobin 14.2 g/dL (11.5-15.3); Lymphocytes # 1.3 10^3/uL (0.8-4.8); Lymphocytes % 11.5 %; Mean Corpuscular HGB Conc 33.5 g/dL (30.0-36.0); Mean Corpuscular Hemoglobin 27.4 pg (28.0-34.0); Mean Corpuscular Volume 81.9 fl (81-99); Mean Platelet Volume 9.2 fL (7.4-10.4); Monocytes # 0.6 10^3/uL (0.2-0.9); Monocytes % 5.2 %; Neutrophils # 9.27 10^3/uL (1.8-7.7); Neutrophils % 81.1 %; Nucleated Red Blood Cells % 0 %; Platelet Count 347 10^3/cmm (130-400); Red Blood Count 5.18 10^6/uL (4.1-5.3); Red Cell Distribution Width 12.2 % (12.1-15.1); White Blood Count 11.4 10^3/uL (4.0-10.0)
[2021-10-26] MEDS: ketorolac 30 mg/mL INJ IVP (10:42)
[2021-10-26 11:08] LABS: Alanine Aminotransferase 27 U/L (0-33); Albumin Level 4.5 g/dL (3.5-5.2); Alkaline Phosphatase 109 IU/L (35-105); Anion Gap 15.1 (5-19); Aspartate Amino Transferase 27 U/L (0-32); Blood Urea Nitrogen 16 mg/dL (6-20); Calcium 9.1 mg/dL (8.5-10.5); Carbon Dioxide 21 mmol/L (22-29); Chloride 101 mmol/L (98-107); Creatinine Clr Calc Pharmacy 116.1406; Globulin 3.2 g/dL (1.3-4.6); Glomerular Filtration Rate 94.2 mL/min (90-130); Glucose 122 mg/dL (65-115); Osmolality Calculated 278 mOsm/kg (285-295); Potassium 4.1 mmol/L (3.5-5.1); Sodium 133 mmol/L (136-145); Total Bilirubin 0.4 mg/dL (0.15-1.2); Total Protein 7.7 g/dL (6.6-8.7)
[2021-10-26 11:19] LABS: HCG, Serum Qual Negative (Negative)
[2021-10-26] MEDS: sodium chloride 0.9% 1,000 ML 999 ML IV ×2 (11:50→14:22)
[2021-10-26 12:02] LABS: Glucose Urine UA Norm (Normal); Ketones Urine 1+ (Negative); Protein Urine 1+ (Negative); Specific Gravity, Urine 1.015 (1.005-1.030); Urine Appearance Cloudy (CLEAR); Urine Color Amber (Yellow); pH Urine 7 (5-7)
[2021-10-26 12:03] LABS: Add Urine Microscopic? YES; Bilirubin Urine 1+ (Negative); Blood Urine 3+ (Negative); Leukocyte Esterase Urine Trace (Negative); Nitrate Urine Negative (Negative); Urobilinogen Urine 1 mg/dL (Negative)
[2021-10-26 12:04] LABS: Bacteria Urine 2+ /hpf; Mucus Urine 1+ /hpf; RBC Urine TOO NUMEROUS TO CNT /hpf (0-2); WBC Urine 25-40 /hpf (0-5)
[2021-10-26 12:05] LABS: Squamous Epithelial Cell Urine RARE /hpf (0-5)
[2021-10-26 12:06] LABS: Add Urine Culture? Yes
[2021-10-26] MEDS: HYDROmorphone 1 mg/mL INJ 1 mL IVP ×5 (12:32→23:26)
[2021-10-26] MEDS: ciprofloxacin 400 MG/200 ML PREMIX 200 MG IV (12:33)
[2021-10-26] MEDS: HYDROmorphone 1 mg/mL INJ 1 mL 0.5 MG IVP (14:21)
--- NOTE | 2021-10-26 15:49 | P.HP_ITS ---
Providers/Chief Complaint Admitting Physician: Raghav Rojas MD Primary Care Provider: Shanda Cervantes MD Chief Complaint: possible kidney stone History of Present Illness Viviana Buckner is a 36 year old female with a history of stones when she was 18 years old. She presented with left renal colicky symptoms began early this morning. No fever or chills but did have some nausea and vomiting. Pain was 10 out of 10. Since being admitted to the emergency department she had a CT scan that demonstrated about a 5 mm left distal ureteral stone with obstructive changes. Urine had some pyuria but no clear evidence of infection. Has been covered with antibiotics. No symptoms of sepsis etc. Attempts at converting her to outpatient with oral narcotics were unsuccessful and she was admitted for symptomatic control. We discussed all the options including focus on conservative management in hopes of spontaneous passage. Have reviewed ESWL versus endoscopy for treatment of the stone. She expressed good understanding I also reviewed that I will be in [place] this evening until approximately 10 PM but I have consulted the hospitalist service for assistance if needed in my absence. There is no emergent variable at this point time. Review of Systems Const: Denies: fever(s) or chills Eyes: Denies: change in vision or eye discharge ENMT: Denies: hoarseness Card: Denies: chest pain or palpitations Resp: Denies: dyspnea or productive cough GI: Reports: abdominal pain, nausea, vomiting and other (No changes in bowel habits) Musc: Reports: back pain Skin/Breast: Denies: rash Neuro: Denies: confusion, Slurred speech present or seizure-like activity Psych: Denies: anxiety or depression Endo: Denies: flushing [place]/Lymph: Denies: easy bruising or easy bleeding All/Imm: Denies: urticaria or acute wheezing Medications/Allergies Home Medications Medication Instructions Recorded Confirmed Last Taken Type anastrozole 1 mg tablet 1 mg PO DAILY 06/04/20 10/26/21 10/25/21 History clonidine HCl 0.1 mg tablet 0.1 mg PO BEDTIME 06/04/20 10/26/21 10/25/21 History levocetirizine 5 mg tablet (Xyzal) 5 mg PO DAILY PRN 06/04/20 10/26/21 1 Week Ago History ~06/04/20 trazodone 50 mg tablet 25 mg PO DAILY PRN 06/04/20 10/26/21 1 Day Ago History ~06/10/20 duloxetine 60 mg capsule,delayed 60 mg PO DAILY 10/26/21 10/26/21 10/25/21 History release propranolol 10 mg tablet See Rx Instructions .ROUTE .COMPLEX 10/26/21 10/26/21 Unknown History sulfamethoxazole 800 1 tab PO BID 10/26/21 10/26/21 10/24/21 History mg-trimethoprim 160 mg tablet sumatriptan succinate 25 mg tablet 25 mg PO DAILY PRN 10/26/21 10/26/21 Unknown History Allergies Allergy/AdvReac Type Severity Reaction Status Date / Time No Known Allergies Allergy Verified 06/08/20 12:00 PFSH Acute PFSH: Medical History (Updated 10/26/21 @ 15:55 by Raghav Rojas MD) Breast cancer, right Essential tremor H/O malignant neoplasm of breast Surgical History H/O bilateral mastectomy 2016 H/O breast reconstruction LD flap on the right H/O section H/O oral surgery History of tonsillectomy Hx of cholecystectomy Port-A-Cath in place removed 06/11/20 S/P OUSMANE-BSO Family History Father CAD (coronary artery disease) Diabetes Hypertension Mother Cancer endometrial cancer Grandmother Cancer maternal colon and ovarian Brother Hypertension Denies family history of Anesthesia complication Bleeding disorder Social History Smoking and tobacco status: current every day smoker Alcohol intake: never Household members: spouse Marital status: Current occupational status: employed History of recent travel: No Vitals/I&O/Wt Last Vital Signs Temp 98.2 F 10/26/21 15:44 Pulse 129 H 10/26/21 15:44 Resp 18 10/26/21 15:46 BP 126/69 10/26/21 15:44 Pulse Ox 95 10/26/21 15:46 10/26/21 10/26/21 10/26/21 06:59 14:59 22:59 Intake Total 1200 / 1200 Balance 1200 / 1200 Weight last 48 hrs Weight 180 lb Physical Exam Const: COMMON NORMALS: no acute distress, alert and well nourished GENERAL APPEARANCE: well kempt and well developed ORIENTATION/CONSCIOUSNESS: not confused HENMT: HEAD & SCALP: normocephalic and atraumatic Eye: COMMON NORMALS: conjunctivae normal and no scleral icterus Neck/C-Spine: COMMON NORMALS: full ROM GENERAL: Yes normal visual inspection Resp: COMMON NORMALS: normal respiratory effort EFFORT & INSPECTION: No labored and No Actively coughing Cardio: RATE: regular rate RHYTHM: regular rhythm GI: PALPATION: Yes Tenderness to palpation present (GI) Extremity: NARRATIVE EXTREMITY EXAM: Good range of motion Neuro: COMMON NORMALS: no focal motor deficits SENSORIUM/ORIENTATION: Yes alert Psych: COMMON NORMALS: mental status grossly normal APPEARANCE: Yes grossly normal and Yes well kempt ATTITUDE: Yes calm and Yes engaged Skin: COMMON NORMALS: no rashes or lesions noted and no jaundice Data : 10/26/21 10:28 10/26/21 10:28 A&P Assessment and plan (1) Calculus of distal left ureter: Refractory pain. Admit for symptomatic control. Hopefully she can get her pain well controlled and be discharged tomorrow for outpatient management or even better passed the stone. Status: Acute (2) History of migraine: No ongoing problems currently Status: Acute (3) Breast cancer, right: Doing well. Status: Acute (4) Essential tremor: Status: Acute Plan 1. Admit for symptomatic control 2. Consult hospitalist for coverage when I am out of town this evening 3. KUB in the morning 4. Options for intervention discussed and pending. 5. Strain all void Attestations Medical Necessity Statement*: Could not manage her pain well enough with oral narcotics to attempt a outpatient management Coding Level of Care Code Acute [employer] for [facility] Fwd Diagnoses Calculus of distal left ureter N20.1 History of migraine Z86.69 Breast cancer, right C50.911 Essential tremor G25.0
--- NOTE | 2021-10-26 16:24 | P.CONIM_ITS ---
Providers/Reason For Consult Consulting Physician/Specialty*: General medical service Reason for Consult*: Nephrolithiasis Attending Physician: Raghav Rojas MD Primary Care Provider: Shanda Cervantes MD History of Present Illness History of Present Illness Viviana Buckner is a 36 year old female with a past medical history of metastatic invasive ductal carcinoma, status post bilateral modified radical mastectomy, chemotherapy, radiation therapy, with prophylactic bilateral oophorectomy/hysterectomy, history of nephrolithiasis, who presents [facility] due to left pelvic pain, left flank pain for 12 hours. She has a history of kidney stones in the past, she has been hydrating well, she is tell me that she woke up this morning with left flank pain, left sided pelvic pain, no fevers, no nausea, CT scan in the emergency room showed a 5 mm left distal ureteral stone with concerns for obstructive changes, hospitalist team has been consulted for assistance Review of Systems Const: Denies: fever(s), chills, fatigue or malaise Eyes: Denies: change in vision or blurry vision Resp: Denies: dyspnea, productive cough, non-productive cough or wheezing GI: Denies: diarrhea Skin/Breast: Denies: rash Neuro: Denies: headache(s) or dizziness Medications/Allergies Home Medications Medication Instructions Recorded Confirmed Last Taken Type anastrozole 1 mg tablet 1 mg PO DAILY 06/04/20 10/26/21 10/25/21 History clonidine HCl 0.1 mg tablet 0.1 mg PO BEDTIME 06/04/20 10/26/21 10/25/21 History levocetirizine 5 mg tablet (Xyzal) 5 mg PO DAILY PRN 06/04/20 10/26/21 1 Week Ago History ~06/04/20 trazodone 50 mg tablet 25 mg PO DAILY PRN 06/04/20 10/26/21 1 Day Ago History ~06/10/20 duloxetine 60 mg capsule,delayed 60 mg PO DAILY 10/26/21 10/26/21 10/25/21 History release propranolol 10 mg tablet See Rx Instructions .ROUTE .COMPLEX 10/26/21 10/26/21 Unknown History sulfamethoxazole 800 1 tab PO BID 10/26/21 10/26/21 10/24/21 History mg-trimethoprim 160 mg tablet sumatriptan succinate 25 mg tablet 25 mg PO DAILY PRN 10/26/21 10/26/21 Unknown History Allergies Allergy/AdvReac Type Severity Reaction Status Date / Time No Known Allergies Allergy Verified 06/08/20 12:00 PFSH Acute PFSH: Medical History Breast cancer, right Essential tremor H/O malignant neoplasm of breast Surgical History H/O bilateral mastectomy 2016 H/O breast reconstruction LD flap on the right H/O section H/O oral surgery History of tonsillectomy Hx of cholecystectomy Port-A-Cath in place removed 06/11/20 S/P OUSMANE-BSO Family History Father CAD (coronary artery disease) Diabetes Hypertension Mother Cancer endometrial cancer Grandmother Cancer maternal colon and ovarian Brother Hypertension Denies family history of Anesthesia complication Bleeding disorder Social History Smoking and tobacco status: current every day smoker Alcohol intake: never Household members: spouse Marital status: Current occupational status: employed History of recent travel: No Vitals/I&O/Wt Last Vital Signs Temp 98.2 F 10/26/21 15:44 Pulse 129 H 10/26/21 15:56 Resp 18 10/26/21 15:56 BP 126/69 10/26/21 15:56 Pulse Ox 95 10/26/21 15:56 10/26/21 10/26/21 10/26/21 06:59 14:59 22:59 Intake Total 1200 / 1200 1000 / 2200 Balance 1200 / 1200 1000 / 2200 Weight last 48 hrs Weight 81.647 kg Physical Exam Const: COMMON NORMALS: no acute distress and patient oriented x3 HENMT: COMMON NORMALS: normocephalic HEAD & SCALP: normocephalic Neck/C-Spine: COMMON NORMALS: no JVD Resp: COMMON NORMALS: normal respiratory effort, No retractions, No use of acc essory muscles and clear to auscultation bilaterally AUSCULTATION: clear to auscultation bilaterally Cardio: COMMON NORMALS: no JVD, regular rate, regular rhythm, S1 normal heart sound present and S2 normal heart sound present RATE: regular rate RHYTHM: regular rhythm HEART SOUNDS: S1 normal heart sound present and S2 normal heart sound present GI: COMMON NORMALS: Normal to inspection, nondistended, normoactive bowel sounds present, Soft to palpation, non-tender, No hepatosplenomegaly present, no masses and no bruits PALPATION: Yes Soft to palpation and Yes No hepatosplenomegaly present Extremity: COMMON NORMALS: capillary refill normal, no clubbing, cyanosis or edema, no calf tenderness and no pedal edema Neuro: COMMON NORMALS: patient oriented x3 Psych: COMMON NORMALS: mental status grossly normal Data : 10/26/21 10:28 10/26/21 10:28 A&P Assessment and plan (1) Essential tremor: Status: Acute (2) History of migraine: Status: Acute (3) Calculus of distal left ureter: Status: Acute Plan - Continue IV fluids -Monitor for fevers, monitor for worsening pain -Dilaudid and Toradol for pain -Monitor hemodynamics Consult Attestations Medical Necessity Statement: Patient requires hospitalization for nephrolithiasis Coding Level of Care Code 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
[2021-10-26] MEDS: ondansetron 2 mg/ML SDV 2 mL 4 MG IVP (17:05)
[2021-10-26] MEDS: oxyCODONE-APAP 10-325 mg Tablet 1 TAB PO (17:05)
[2021-10-26] MEDS: sodium chloride 0.9% 1,000 ML 125 ML IV (17:06)
[2021-10-26] MEDS: cloNIDine 0.1 mg Tablet PO (20:50)
[2021-10-26] MEDS: metoclopramide 5 mg/mL SDV 2 mL IVP (23:26)
[2021-10-27] VITALS (13 sets, daily range): BP systolic 111–133; BP diastolic 53–86; PULSE 73–89; RESP 10–18; TEMP 36.2–36.9; O2SAT 92–100
--- NOTE | 2021-10-27 | SCC_ITS ---
Procedure done: 1. Cystoscopy, left retrograde ureteropyelogram 2. Ureteroscopy, laser, stent 32.9 seconds of fluoroscopic guidance, for a cumulative dose of 7.81 mGy, was provided to Dr. Rojas by the radiology department. C-arm images of the abdomen were saved for the patient's permanent record. [facility]
[2021-10-27] MEDS: sodium chloride 0.9% 1,000 ML 125 ML IV (01:15)
[2021-10-27] MEDS: ciprofloxacin 400 MG/200 ML PREMIX 200 MG IV (01:17)
[2021-10-27] MEDS: oxyCODONE-APAP 10-325 mg Tablet 1 TAB PO (01:32)
[2021-10-27] MEDS: HYDROmorphone 1 mg/mL INJ 1 mL IVP ×2 (04:56→07:54)
[2021-10-27] MEDS: SUMAtriptan 25 mg Tablet PO (05:21)
[2021-10-27 05:29] LABS: Basophils # 0.1 10^3/uL (0.0-0.1); Basophils % 0.5 %; Eosinophils # 0.1 10^3/uL (0.0-0.8); Hematocrit 40.4 % (37.0-47.0); Lymphocytes % 19.5 %; Mean Corpuscular HGB Conc 32.2 g/dL (30.0-36.0); Mean Corpuscular Hemoglobin 27.8 pg (28.0-34.0); Mean Corpuscular Volume 86.3 fl (81-99); Mean Platelet Volume 9.2 fL (7.4-10.4); Monocytes # 1.1 10^3/uL (0.2-0.9); Monocytes % 10.4 %; Neutrophils # 6.86 10^3/uL (1.8-7.7); Neutrophils % 68.1 %; Nucleated Red Blood Cells % 0 %; Platelet Count 271 10^3/cmm (130-400); Red Blood Count 4.68 10^6/uL (4.1-5.3); Red Cell Distribution Width 12.6 % (12.1-15.1); White Blood Count 10.1 10^3/uL (4.0-10.0)
[2021-10-27 05:49] LABS: Anion Gap 15.4 (5-19); Blood Urea Nitrogen 11 mg/dL (6-20); Calcium 8.2 mg/dL (8.5-10.5); Carbon Dioxide 21 mmol/L (22-29); Chloride 107 mmol/L (98-107); Creatinine Clr Calc Pharmacy 90.9185; Glomerular Filtration Rate 70.5 mL/min (90-130); Glucose 90 mg/dL (65-115); Osmolality Calculated 287 mOsm/kg (285-295); Potassium 4.4 mmol/L (3.5-5.1); Sodium 139 mmol/L (136-145)
--- NOTE | 2021-10-27 06:00 | XRR_ITS ---
PROCEDURE INFORMATION: Exam: XR Abdomen Exam date and time: 10/27/2021 6:28 AM Age: 36 years old Clinical indication: Abdominal pain; Flank; Left; Prior surgery; Surgery type: Hysto; Additional info: Follow-up left distal ureteral stone TECHNIQUE: Imaging protocol: XR of the abdomen. Views: Frontal supine view of the abdomen. 1 View. COMPARISON: CT kidney stone [id number] 10/26/2021 11:00 AM FINDINGS: Gastrointestinal tract: Nonobstructed bowel gas pattern. Intraperitoneal space: Surgical clips right upper quadrant and right lateral abdomen. Vasculature: Bilateral pelvic phleboliths redemonstrated. The 4 mm distal left ureteral calculus previously noted at the level of the pelvic inlet is now located at the UVJ (there are 2 new nearly overlapping 3 mm calcifications now seen projecting between 2 pre-existing phleboliths, unclear whether the stone has fragmented). Bones/joints: Unremarkable. XR/XR KUB [id number] IMPRESSION: Progression of previously identified 4 mm left ureteral calculus distally, now at the UVJ.
[2021-10-27] MEDS: ondansetron 2 mg/ML SDV 2 mL 4 MG IVP (06:51)
[2021-10-27] MEDS: ketorolac 30 mg/mL INJ 15 MG IVP (06:51)
--- NOTE | 2021-10-27 07:59 | PM.PN ---
Subjective Subjective: Has not passed the stone. No fever or chills. No shortness of breath, chest pain. Still having typical renal colic on the left and at times severe pain. Persistent nausea requiring parenteral treatment. KUB shows that the stone has advanced some distally. Reviewed her options which would include continued conservative management either outpatient or inpatient but she does not think she could manage outpatient. Also reviewed intervention options including ESWL tomorrow when unit is available or endoscopy today. After detailed discussion of options benefits risk potential complications alternatives she elected cystoscopy, LEFT: Retrograde, ureteroscopy, laser, stent. Informed consent was obtained. She has good questions and seemed content with my answers. Reviewed stent issues, potential staged procedure based on access to stone etc. Medications: Reviewed: Yes Vitals/I&O/Wt Last Vital Signs Temp 98.4 F 10/27/21 07:30 Pulse 77 10/27/21 07:30 Resp 18 10/27/21 07:54 BP 113/76 10/27/21 07:30 Pulse Ox 92 10/27/21 07:30 10/26/21 10/27/21 10/27/21 22:59 06:59 14:59 Intake Total 1120 / 2320 1200 / 3520 Output Total 600 / 600 1400 / 2000 Balance 520 / 1720 -200 / 1520 Weight last 48 hrs Weight 190 lb Weight 180 lb Physical Exam Const: COMMON NORMALS: no acute distress, alert and well nourished GENERAL APPEARANCE: well kempt and well developed ORIENTATION/CONSCIOUSNESS: not confused HENMT: HEAD & SCALP: normocephalic and atraumatic Eye: COMMON NORMALS: conjunctivae normal and no scleral icterus Neck/C-Spine: COMMON NORMALS: full ROM GENERAL: Yes normal visual inspection Resp: COMMON NORMALS: normal respiratory effort EFFORT & INSPECTION: No labored and No Actively coughing GI: PALPATION: Yes Tenderness to palpation present (GI) Extremity: NARRATIVE EXTREMITY EXAM: Good range of motion Neuro: COMMON NORMALS: no focal motor deficits SENSORIUM/ORIENTATION: Yes alert Psych: COMMON NORMALS: mental status grossly normal APPEARANCE: Yes grossly normal and Yes well kempt ATTITUDE: Yes calm and Yes engaged THOUGHT CONTENT: Yes Normal thought content present INSIGHT: Good insight present (Psych) Skin: COMMON NORMALS: no rashes or lesions noted and no jaundice Data : 10/27/21 04:54 10/27/21 04:54 KUB: My impression: Stone is moved distally. Reviewed CT scan and today's films with the patient. Radiologist's impression: Pending A&P Assessment and plan (1) Calculus of distal left ureter: Has progressed distally somewhat. He is having difficulty controlling and tolerating the symptoms. Status: Acute (2) Renal colic on left side: Refractory. Still requiring parenteral narcotics. Wants to proceed with intervention Status: Acute Attestations Medical Necessity Statement*: Surgical intervention today. 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
--- NOTE | 2021-10-27 08:27 | ANES.PREANE2 ---
Pre-Anesthetic Assessment Height/Weight: Height 1.63 m Weight 86.183 kg Temp Pulse Resp BP Pulse Ox 98.4 F 77 18 113/76 92 10/27/21 07:30 10/27/21 07:30 10/27/21 07:54 10/27/21 07:30 10/27/21 07:30 Preop Diagnosis: ureteral calculus Operation Date: 10/27/21 14:30 Proposed Procedures p Cystoretrograde ureteroscopy laser and stent(Not Applicable) - Raghav Rojas MD s Ureteroscopy(Not Applicable) - Raghav Rojas MD Familial anesthetic complications: None Was Clonidine taken within 24 hours: N/A (Held since 10/25/21) Last intake: 10/26/21 Social Tobacco and No tobacco Exam alert, oriented x 3, clear to auscultation bilaterally and regular rate & rhythm Airway Submandibular: within normal limits Cervical ROM: within normal limits Mallampati: Class II Dentition: full Pulmonary None reported CV/HEM None reported ueteral calculus Hepatic None reported GI Gastroesophageal Reflux Disease (Well controlled) Metabolic None reported Musc/skel Hx of mastectomy Neuropsych Headache (Migraines) Essential tremor Anesthetic Plan ASA status: 3 (36 year old female smoker with ureretral calculus, hx of migraines, and breast cancer) Anesthesia: Anesthesia Evaluation and General Other: We discussed risk and benefits of general anesthesia including PONV, sore throat (sometimes severe), corneal abrasion, positioning and peripheral nerve injuries, life threatening allergic reaction, post operative ICU admission requiring prolonged intubation, stroke, heart attack, , and rare incidences of recall. Patient consents to proceed with general anesthesia. Risk of > 500 ml blood loss (7ml/kg in children): No Medications/Allergies Home Medications Medication Instructions Recorded Confirmed Last Taken Type anastrozole 1 mg tablet 1 mg PO DAILY 06/04/20 10/26/21 10/25/21 History clonidine HCl 0.1 mg tablet 0.1 mg PO BEDTIME 06/04/20 10/26/21 10/25/21 History levocetirizine 5 mg tablet (Xyzal) 5 mg PO DAILY PRN 06/04/20 10/26/21 1 Week Ago History ~06/04/20 trazodone 50 mg tablet 25 mg PO DAILY PRN 06/04/20 10/26/21 1 Day Ago History ~06/10/20 duloxetine 60 mg capsule,delayed 60 mg PO DAILY 10/26/21 10/26/21 10/25/21 History release propranolol 10 mg tablet See Rx Instructions .ROUTE .COMPLEX 10/26/21 10/26/21 Unknown History sulfamethoxazole 800 1 tab PO BID 10/26/21 10/26/21 10/24/21 History mg-trimethoprim 160 mg tablet sumatriptan succinate 25 mg tablet 25 mg PO DAILY PRN 10/26/21 10/26/21 Unknown History Allergies Allergy/AdvReac Type Severity Reaction Status Date / Time No Known Allergies Allergy Verified 06/08/20 12:00 Current Medications Generic Name Dose Route Start Last Admin Trade Name Freq PRN Reason Stop Dose Admin Clonidine HCl 0.1 mg 10/26/21 21:00 10/26/21 20:50 Clonidine 0.1 Mg Tablet PO 0.1 mg BEDTIME MESSI Administration Hydromorphone HCl 1 mg 10/26/21 16:06 10/27/21 07:54 Hydromorphone 1 Mg/Ml Inj 1 Ml IVP 1 mg Q2H PRN Administration Renal colic Sodium Chloride 1,000 mls @ 125 mls/hr 10/26/21 16:06 10/27/21 01:15 Sodium Chloride 0.9% IV 125 mls/hr .Q8H MESSI Administration Ciprofloxacin/Dextrose 400 mg in 200 mls @ 200 mls/hr 10/27/21 00:30 10/27/21 03:05 Cipro IV Infused Q12H MESSI Infusion Protocol Ketorolac Tromethamine 15 mg 10/26/21 16:06 10/27/21 06:51 Ketorolac 30 Mg/Ml Inj IVP 10/31/21 16:05 15 mg Q6H PRN Administration MODERATE PAIN Ondansetron HCl 4 mg 10/26/21 16:06 10/27/21 06:51 Ondansetron 2 Mg/Ml Sdv 2 Ml IVP 4 mg Q6H PRN Administration NAUSEA AND VOMITING Oxycodone/Acetaminophen 1 tab 10/26/21 16:06 10/27/21 01:32 Oxycodone-Apap 10-325 Mg Tablet PO 1 tab Q6H PRN Administration MODERATE PAIN Sumatriptan Succinate 25 mg 10/26/21 16:06 04/24/22 05:21 Sumatriptan 25 Mg Tablet PO 25 mg DAILY PRN Administration Migraine Headache PFSH Anesthesia Medical History Breast cancer, right Essential tremor H/O malignant neoplasm of breast Surgical History H/O bilateral mastectomy 2016 H/O breast reconstruction LD flap on the right H/O section H/O oral surgery History of tonsillectomy Hx of cholecystectomy Port-A-Cath in place removed 06/11/20 S/P OUSMANE-BSO Family History Father CAD (coronary artery disease) Diabetes Hypertension Mother Cancer endometrial cancer Grandmother Cancer maternal colon and ovarian Brother Hypertension Denies family history of Anesthesia complication Bleeding disorder Social History Smoking and tobacco status: current every day smoker Alcohol intake: never Household members: spouse Marital status: Current occupational status: employed History of recent travel: No Data Anesthesia : 10/27/21 04:54 10/27/21 04:54 Short CBC 10/26/21 10/27/21 Range/Units 10:28 04:54 WBC 11.4 H 10.1 H (4.0-10.0) 10^3/uL Hgb 14.2 13.0 (11.5-15.3) g/dL Hct 42.4 40.4 (37.0-47.0) % MCV 81.9 86.3 D (81-99) fl Plt Count 347 271 (130-400) 10^3/cmm Neut % (Auto) 81.1 68.1 % Neut # (Auto) 9.27 H 6.86 (1.8-7.7) 10^3/uL BMP 10/26/21 10/27/21 10:28 04:54 Sodium 133 L 139 Potassium 4.1 4.4 Chloride 101 107 Carbon Dioxide 21 L 21 L BUN 16 11 Creatinine 0.7 0.9 Glucose 122 H 90 Calcium 9.1 8.2 L Liver Function 10/26/21 Range/Units 10:28 Total Bilirubin 0.4 (0.15-1.2) mg/dL AST 27 (0-32) U/L ALT 27 (0-33) U/L Alkaline Phosphatase 109 H (35-105) IU/L Albumin 4.5 (3.5-5.2) g/dL Urine 10/26/21 Range/Units 11:26 Urine Color Aria (Yellow) Urine Appearance Cloudy (CLEAR) Urine pH 7 (5-7) Ur Specific [place] 1.015 (1.005-1.030) Urine Protein 1+ H (Negative) Urine Glucose (UA) Norm (Normal) Urine Ketones 1+ H (Negative) Urine Nitrate Negative (Negative) Urine Bilirubin 1+ H (Negative) Ur Leukocyte Esterase Trace H (Negative) Urine RBC Too numerous to cnt H (0-2) /hpf Urine WBC 25-40 H (0-5) /hpf Cardiac Studies: No Data to Display
[2021-10-27] MEDS: metoclopramide 5 mg/mL SDV 2 mL IVP (09:14)
--- NOTE | 2021-10-27 09:16 | P.PN_ITS ---
Subjective Subjective: Patient was seen this morning, she had episodes of nausea overnight, no fevers, no chills Vitals/I&O/Wt Last Vital Signs Temp 98.4 F 10/27/21 07:30 Pulse 77 10/27/21 07:30 Resp 18 10/27/21 07:54 BP 113/76 10/27/21 07:30 Pulse Ox 92 10/27/21 07:30 10/26/21 10/27/21 10/27/21 22:59 06:59 14:59 Intake Total 1120 / 2320 1200 / 3520 Output Total 600 / 600 1400 / 2000 Balance 520 / 1720 -200 / 1520 Weight last 48 hrs Weight 86.183 kg Weight 81.647 kg Physical Exam Const: COMMON NORMALS: no acute distress and patient oriented x3 Resp: COMMON NORMALS: normal respiratory effort, No retractions, No use of accessory muscles and clear to auscultation bilaterally AUSCULTATION: clear to auscultation bilaterally Cardio: COMMON NORMALS: regular rate, regular rhythm, S1 normal heart sound present and S2 normal heart sound present RATE: regular rate RHYTHM: regular rhythm HEART SOUNDS: S1 normal heart sound present and S2 normal heart sound present GI: COMMON NORMALS: Normal to inspection, nondistended, normoactive bowel sounds present, Soft to palpation and non-tender PALPATION: Yes Soft to palpation Extremity: COMMON NORMALS: no pedal edema Neuro: COMMON NORMALS: patient oriented x3 Psych: COMMON NORMALS: mental status grossly normal Data : 10/27/21 04:54 10/27/21 04:54 A&P Assessment and plan (1) Essential tremor: Status: Acute (2) History of migraine: Status: Acute (3) Calculus of distal left ureter: Status: Acute Plan - Continue IV fluids -Monitor for fevers, monitor for worsening pain -Dilaudid and Toradol for pain -Add Reglan for nausea -Monitor hemodynamics -Proceeding with intervention, possible discharge later on today Attestations Medical Necessity Statement*: Patient requires hospitalization for ureteral calculus Coding Level of Care Code 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
--- NOTE | 2021-10-27 09:20 | P.OP_ITS ---
Operative Report Date of procedure: October 27, 2021 Pre-op diagnosis: 1. Refractory pain secondary to left distal ureteral stone with obstruction Post-op diagnosis: 1. Refractory pain secondary to left distal ureteral stone with obstruction Procedure done: 1. Cystoscopy, left retrograde ureteropyelogram 2. Ureteroscopy, laser, stent Specimens removed/disposition: Stone fragments Pathology: Stone fragments Surgeon: Bob Anesthesia: General Estimated blood loss: Minimal Urine output: Not measured Complications: None Findings: Stone in the expected position Treated without difficulty Brief History: Viviana is a very pleasant 36-year-old white female who was admitted through the emergency department yesterday for refractory left renal colicky symptoms secondary to a 4 to 5 mm left distal ureteral stone with moderate to severe ob struction. Could not control her pain adequately with aggressive parenteral narcotics in the emergency department and for that reason she was admitted for further evaluation and treatment. Follow-up KUB this morning showed stone had progressed some but she was still having difficulty with nausea and vomiting and wanted to proceed with intervention. CT also showed changes consistent with multiple bilateral punctate stones and medullary calcification suspicious for MSK. Procedure: After urgent evaluation examination and obtaining of informed consent she was taken to the operating suite on 10/27/2021 where general anesthesia was administered without difficulty after appropriate timeout was performed, SCDs confirmed to be functioning, preoperative antibiotics administered, beta-manju protocol confirmed. Prepped and draped in the usual sterile fashion in dorsolithotomy position paying careful attention to avoiding pressure points. 21 [place] cystoscope with 30 degree lens was introduced into urethra meatus and advanced into the bladder under videoscopy. Bladder was systematically examined. No stone was seen. A [place] cone-tip catheter was intubated into the left ureteral orifice for LEFT RETROGRADE URETEROPYELOGRAM which demonstrated a stone in the very distal ureter as expected. Ureter proximal to that point was dilated. No other filling defects identified. A flexible tip guidewire was then advanced up the left ureter. A 7.5 [place] offset semirigid ureteroscope was advanced next to the guidewire up the ureter. Stone was encountered in the expected position. Fragmented with a 200 ?m thulium superpulse laser fiber and the larger of the pieces were removed with grasping forceps. Final inspection revealed no substantial fragments and only a little bit of sand remaining in the ureter. Cystoscope was then backloaded over the guidewire and a 4.5 x 24 cm double- pigtail stent with string was advanced over the guidewire through the cystoscope into appropriate position as confirmed via fluoroscopy and cystoscopy. Bladder drained and procedure completed. Tolerated procedure well without complications and was awakened in the operating room and returned to the recovery room in stable condition. PLANS: 1. Recovery and then discharge when recovered. 2. Follow-up for cystoscopy and stent removal as directed.
--- NOTE | 2021-10-27 09:32 | P.DS_ITS ---
Discharge Providers Date of Admission: 10/26/21 16:06 Date of Discharge: October 27, 2021 Attending Provider at Admission: Raghav Rojas MD Attending Provider at Discharge: Raghav Rojas MD Consults: Dr. Chirinos Primary Care Provider: Shanda Cervantes MD Diagnoses at Discharge Discharge Diagnosis (1) Calculus of distal left ureter: Details from hospital stay: Admitted for uncontrolled pain related to left distal ureteral stone causing obstruction. No evidence of severe infection systemic or otherwise. Status: Acute (2) Essential tremor: Status: Acute (3) History of migraine: Status: Acute Reason for Visit Reason for Visit: Left renal colic secondary to left distal ureteral Brief History: Presented to the emergency department with left renal colicky type symptoms beginning earlier the morning of 10/26/2021. CT scan confirmed roughly 5 to 6 mm left ureteral calculus near the crossing of the pelvic vessels. Attempts at getting her pain controlled were only partially successful and therefore she was admitted for further parenteral narcotics and antiemetics for her symptoms. Hospital Course Hospital Course She was admitted through the emergency department for refractory renal colic Her initial choice was to continue conservative management. On the morning of hospital day #2 she was still quite symptomatic. KUB did show that the stone had progressed somewhat distally but due to the refractory symptoms she wants to proceed. She underwent endoscopy and treatment of the stone and stent placement. After recovery she was discharged in stable condition Physical Exam Narrative: Doing well clinically. Regular rate and rhythm No labored respiration Pain controlled Deemed safe for further recovery at home. Discharge Data Studies Completed and Pending Completed Studies During Hospitalization Category Date Time Status CT abdomen renal stone [CT kidney stone [id number]] Urgent Cat Scan 10/26/21 09:39 Completed XR KUB [id number] Routine Exams 10/27/21 06:00 Completed Pending at discharge Category Date Time Status Urine Culture Stat Lab 10/26/21 11:26 Results Radiology Impressions Abdomen/Pelvis CT 10/26/21 09:39 IMPRESSION: Mild left hydroureteronephrosis secondary to a 4-5 mm calculus in the distal left ureter at the level of the pelvic brim. COMMENTS: Consistent with the [employer]'s Incidental Findings Committee white paper (J Am Sharon Radiol 2018): Any incidental renal lesion less than 1 cm or classified as too small to characterize, or any incidental cystic renal lesion characterized as simple-appearing, is likely benign. No follow-up imaging is recommended for these lesions per consensus recommendations based on imaging criteria. KUB X-Ray 10/27/21 06:00 IMPRESSION: Progression of previously identified 4 mm left ureteral calculus distally, now at the UVJ. Laboratory Results WBC 10.1 10^3/uL (4.0-10.0) H 10/27/21 04:54 RBC 4.68 10^6/uL (4.1-5.3) 10/27/21 04:54 Hgb 13.0 g/dL (11.5-15.3) 10/27/21 04:54 Hct 40.4 % (37.0-47.0) 10/27/21 04:54 MCV 86.3 fl (81-99) D 10/27/21 04:54 MCH 27.8 pg (28.0-34.0) L 10/27/21 04:54 MCHC 32.2 g/dL (30.0-36.0) 10/27/21 04:54 RDW 12.6 % (12.1-15.1) 10/27/21 04:54 Plt Count 271 10^3/cmm (130-400) 10/27/21 04:54 MPV 9.2 fL (7.4-10.4) 10/27/21 04:54 Neut % (Auto) 68.1 % 10/27/21 04:54 Lymph % (Auto) 19.5 % 10/27/21 04:54 Valley % (Auto) 10.4 % 10/27/21 04:54 Eos % (Auto) 1.0 % 10/27/21 04:54 Baso % (Auto) 0.5 % 10/27/21 04:54 Neut # (Auto) 6.86 10^3/uL (1.8-7.7) 10/27/21 04:54 Lymph # (Auto) 2.0 10^3/uL (0.8-4.8) 10/27/21 04:54 Valley # (Auto) 1.1 10^3/uL (0.2-0.9) H 10/27/21 04:54 Eos # (Auto) 0.1 10^3/uL (0.0-0.8) 10/27/21 04:54 Baso # (Auto) 0.1 10^3/uL (0.0-0.1) 10/27/21 04:54 Nucleated RBC % (auto) 0 % 10/27/21 04:54 Nucleated RBCs # 0.0 /100WBC 10/27/21 04:54 Sodium 139 mmol/L (136-145) 10/27/21 04:54 Potassium 4.4 mmol/L (3.5-5.1) 10/27/21 04:54 Chloride 107 mmol/L (98-107) 10/27/21 04:54 Carbon Dioxide 21 mmol/L (22-29) L 10/27/21 04:54 Anion Gap 15.4 (5-19) 10/27/21 04:54 BUN 11 mg/dL (6-20) 10/27/21 04:54 Creatinine 0.9 mg/dL (0.5-0.9) 10/27/21 04:54 GFR Calculation 70.5 mL/min (90-130) L 10/27/21 04:54 Glucose 90 mg/dL (65-115) 10/27/21 04:54 Calculated Osmolality 287 mOsm/kg (285-295) 10/27/21 04:54 Calcium 8.2 mg/dL (8.5-10.5) L 10/27/21 04:54 Total Bilirubin 0.4 mg/dL (0.15-1.2) 10/26/21 10:28 AST 27 U/L (0-32) 10/26/21 10:28 ALT 27 U/L (0-33) 10/26/21 10:28 Alkaline Phosphatase 109 IU/L (35-105) H 10/26/21 10:28 Total Protein 7.7 g/dL (6.6-8.7) 10/26/21 10:28 Albumin 4.5 g/dL (3.5-5.2) 10/26/21 10:28 Globulin 3.2 g/dL (1.3-4.6) 10/26/21 10:28 HCG, Qual Negative (Negative) 10/26/21 10:28 Urine Color Aria (Yellow) 10/26/21 11:26 Urine Appearance Cloudy (CLEAR) 10/26/21 11:26 Urine pH 7 (5-7) 10/26/21 11:26 Ur Specific [employer] 1.015 (1.005-1.030) 10/26/21 11:26 Urine Protein 1+ (Negative) H 10/26/21 11:26 Urine Glucose (UA) Norm (Normal) 10/26/21 11:26 Urine Ketones 1+ (Negative) H 10/26/21 11:26 Urine Blood 3+ (Negative) H 10/26/21 11:26 Urine Nitrate Negative (Negative) 10/26/21 11:26 Urine Bilirubin 1+ (Negative) H 10/26/21 11:26 Urine Urobilinogen 1 mg/dL (Negative) H 10/26/21 11:26 Ur Leukocyte Esterase Trace (Negative) H 10/26/21 11:26 Urine RBC Too numerous to cnt /hpf (0-2) H 10/26/21 11:26 Urine WBC 25-40 /hpf (0-5) H 10/26/21 11:26 Ur Squamous Epith Cells Rare /hpf (0-5) 10/26/21 11:26 Amorphous Sediment Not Reportable 10/26/21 11:26 Urine Bacteria 2+ /hpf (NONE) H 10/26/21 11:26 Urine Mucus 1+ /hpf 10/26/21 11:26 Vitals Last Vital Signs Temp 98.4 F 10/27/21 07:30 Pulse 77 10/27/21 07:30 Resp 18 10/27/21 07:54 BP 113/76 10/27/21 07:30 Pulse Ox 92 10/27/21 07:30 Discharge Plan Discharge Patient Disposition: Home Condition: Stable Prescriptions: New Percocet 5-325 mg tablet 1 tab PO Q6H Qty: 12 0RF Continued anastrozole 1 mg tablet 1 mg PO DAILY 0RF levocetirizine [Xyzal] 5 mg tablet 5 mg PO DAILY PRN (Reason: Allergy Symptoms) 0RF trazodone 50 mg tablet 25 mg PO DAILY PRN (Reason: Sleep) 0RF clonidine HCl 0.1 mg tablet 0.1 mg PO BEDTIME 0RF sumatriptan succinate 25 mg tablet 25 mg PO DAILY PRN (Reason: Migraine Headache) 0RF sulfamethoxazole-trimethoprim 800-160 mg tablet 1 tab PO BID 0RF propranolol 10 mg tablet See Rx Instructions .ROUTE .COMPLEX 0RF Rx Instructions: 20 mg orally in the morning and an additional 20 mg daily PRN duloxetine 60 mg capsule,delayed release(DR/EC) 60 mg PO DAILY 0RF Discharge Orders: Discharge Order (Routine); Ordered 10/27/21 Ordered By: Raghav Rojas Referrals: Shanda Cervantes MD [Primary Care Provider] - Raghav Rojas MD [Physician] - 10/30/21 (Stent removal with string. ) Discharge Diet: Advance as tolerated Discharge Activity: Increase activity as tolerated Patient Instructions: Opioid Safety Activity Restrictions/Additional Instructions: 1. The procedure went very well. The stone was readily accessible and fragmented with the laser fiber. 2. Because there was some swelling it was decided to leave the stent in. A very small stent which hopefully will be more comfortable was left indwelling. 3. A small string was attached to the distal end which will allow the stent to be removed without scope in the clinic. Please be careful of the string. Try not to accidentally pull on them which would dislodge the stent. If that does happen you can remove the stent the rest of the way by securing the string and pulling until the stent is completely out. This is not hard nor painful. 4. You can expect to have some urgency, frequency, blood in the urine, possibly some left flank pain with voiding and all of the symptoms are related to the stent. They will go away once the stent is removed. 5. You can use [id number] Azo Standard if you are having burning. It does stain your clothing orange. 6. You should not require additional antibiotics 7. I am making no change to your routine home medications Discharge Attestations Time Spent in Discharge Care*: less than 30 min Status at Discharge: Cognitive status at discharge: cognitively intact , Overall status at discharge: patient is back to baseline Quality Metrics Clinical Quality Measures [ No reported AMI, CVA or VTE this stay] Coding Level of Care Code Acute Chg FW DC note Diagnoses Essential tremor G25.0 History of migraine Z86.69 Calculus of distal left ureter N20.1
--- NOTE | 2021-10-27 09:45 | SC_ITS ---
WS: [email or web address] C-arm fluoroscopy left ureteral stent placement, 10/27/2021 Clinical Data: intra-op Comparison: None. Findings: Dr. Rojas inserted a left ureteral stent. SC/C-arm FL for Urology Impression: Left ureteral stent insertion.
--- NOTE | 2021-10-27 11:18 | ANE.PACU2 ---
Inpatient post-anesthesia follow up: Airway intact: Yes Vital signs: Temperature 97.2 F Pulse Rate 89 Respiratory Rate 16 Blood Pressure 127/53 Pulse Oximetry 100 Oxygen Delivery Me thod Nasal Cannula Oxygen Flow Rate 2 Fraction of Inspir ed Oxygen Hydration adequate: Yes Nausea and vomiting: No Pain level: 1 Mental status: Baseline
[2021-10-27] MEDS: propranolol 20 mg Tablet PO (11:45)
[2021-10-27] MEDS: duloxetine 60 mg Capsule PO (11:45)
[2021-10-27] MEDS: ciprofloxacin 500 mg Tablet PO (13:36)
== END 2021-10-27 14:00 | disposition home or self-care (01) ==
LOC: ER 14:08 → MEDSURG 15:50
PROVIDERS: Physician Assistant; Admitting Provider Urology; Emergency Provider Family Medicine; PCP Internal Medicine; Visit Provider Urology
PROC: 0TJ98ZZ Inspection of Ureter, Via Natural or Artificial Opening Endoscopic (ICD-10-PCS; CPT 52351; 2021-10-27 14:10)
PROC: 0TJB8ZZ Inspection of Bladder, Via Natural or Artificial Opening Endoscopic (ICD-10-PCS; CPT 52000; 2021-10-27 14:10)
PROC: (CPT 74420; 2021-10-27 14:10)
PROC: (CPT 52356; 2021-10-27 14:10)
PROC: (CPT 50605; 2021-10-27 14:10)
DX: N20.1 Calculus of ureter (principal); Z86.69 Personal history of other diseases of the nervous system and sense organs; C50.911 Malignant neoplasm of unspecified site of right female breast; G25.0 Essential tremor; N23 Unspecified renal colic; Z85.3 Personal history of malignant neoplasm of breast; Z90.11 Acquired absence of right breast and nipple; F17.210 Nicotine dependence, cigarettes, uncomplicated
CPT/HCPCS: 52356; 36415; 74018; 74176; 76000; 80048; 80053; 81001; 82365; 84703; 85025; 87086; 88300; 96365; 96372; 96375; 96376; 99285; C2625; G0378; J0744; J1170; J1885; J2250; J2270; J2405; J2704; J2765; J3010; J7030

== ENCOUNTER → 2021-10-31 13:35 | Outpatient (BNVA) | payer BC, SELFPAY | PROVIDERS: PCP Internal Medicine; Visit Provider Urology | DX: N20.0 Calculus of kidney (principal) | CPT/HCPCS: 81003 ==

== ENCOUNTER 2022-05-20 17:04 | Outpatient (CLI) | payer BC, SELFPAY ==
[2022-05-20 17:19] LABS: Basophils # 0.1 10^3/uL (0.0-0.1); Basophils % 1.2 %; Eosinophils # 0.3 10^3/uL (0.0-0.8); Eosinophils % 3.3 %; Hematocrit 44.7 % (37.0-47.0); Hemoglobin 14.5 g/dL (11.5-15.3); Lymphocytes # 2.2 10^3/uL (0.8-4.8); Lymphocytes % 25.7 %; Mean Corpuscular HGB Conc 32.4 g/dL (30.0-36.0); Mean Corpuscular Hemoglobin 27.8 pg (28.0-34.0); Mean Corpuscular Volume 85.6 fl (81-99); Mean Platelet Volume 9.6 fL (7.4-10.4); Monocytes # 0.8 10^3/uL (0.2-0.9); Neutrophils # 4.96 10^3/uL (1.8-7.7); Neutrophils % 59.3 %; Nucleated Red Blood Cells % 0 %; Platelet Count 302 10^3/cmm (130-400); Red Blood Count 5.22 10^6/uL (4.1-5.3); Red Cell Distribution Width 12.4 % (12.1-15.1); White Blood Count 8.4 10^3/uL (4.0-10.0)
[2022-05-20 17:36] LABS: Alanine Aminotransferase 23 U/L (0-33); Albumin Level 4.4 g/dL (3.5-5.2); Alkaline Phosphatase 113 U/L (35-105); Anion Gap 17.3 (5-19); Aspartate Amino Transferase 26 U/L (0-32); Blood Urea Nitrogen 11 mg/dL (6-20); Calcium 9.9 mg/dL (8.5-10.5); Carbon Dioxide 26 mmol/L (22-29); Chloride 102 mmol/L (98-107); Globulin 3.6 g/dL (1.3-4.6); Glomerular Filtration Rate 94.2 mL/min (90-130); Glucose 76 mg/dL (65-115); Osmolality Calculated 290 mOsm/kg (285-295); Potassium 4.3 mmol/L (3.5-5.1); Sodium 141 mmol/L (136-145); Total Bilirubin 0.3 mg/dL (0.15-1.2)
== END 2022-05-20 17:05 | disposition home or self-care (01) ==
LOC: LAB 17:06
PROVIDERS: PCP Internal Medicine; Visit Provider Internal Medicine Hematology & Oncology
DX: C50.911 Malignant neoplasm of unspecified site of right female breast (principal)
CPT/HCPCS: 80053; 85025

== ENCOUNTER 2022-07-17 13:29 | Outpatient (CLI) | payer BC, SELFPAY ==
--- NOTE | 2022-07-17 14:00 | XR_ITS ---
WS: [id number] DEXA (DUAL ENERGY X-RAY ABSORPTIOMETRY) Bone mineral density was performed using a barter.li machine. HISTORY: Hormonal Therapy COMPARISON: None available. Lumbar spine BMD (L1-L4): 0.884 g/cm2 T score: -2.5 Z score: -2.9 Total hip BMD: Left: 0.903 g/cm2. T score: -0.8 Z score: -1.0 Right: 0.895 g/cm2. T score: -0.9 Z score: -1.0 XR/XR DEXA axial skeleton* [id number] IMPRESSION: OSTEOPENIA based upon the WHO classification for females.
== END 2022-07-17 13:30 | disposition home or self-care (01) ==
LOC: RAD 13:33
PROVIDERS: PCP Internal Medicine; Visit Provider Internal Medicine Hematology & Oncology
DX: Z13.820 Encounter for screening for osteoporosis (principal)
CPT/HCPCS: 77080

== ENCOUNTER 2022-09-09 14:11 | Outpatient (CLI) | payer BC, SELFPAY ==
--- NOTE | 2022-09-09 14:38 | XR_ITS ---
WS: [email or web address] KUB, AP view, 09/09/2022 Clinical Data: Bilateral Renal Stones Comparison: KUB, 10/27/2021 Findings: There are phleboliths in the right side of the true pelvis. There are 2 phleboliths in left side true pelvis and the possible distal left ureteral calculus is not present. No abnormal intraabdominal masses or calcifications are seen. There is no dilatated small bowel or ev idence of obstruction. There are right upper quadrant clips from a cholecystectomy. XR/XR KUB [id number] Impression: Probable passage of left UVJ calculus.
== END 2022-09-09 14:12 | disposition home or self-care (01) ==
LOC: RAD 14:17
PROVIDERS: PCP Internal Medicine; Visit Provider Urology
DX: N20.0 Calculus of kidney (principal)
CPT/HCPCS: 74018

== ENCOUNTER 2022-09-25 07:09 | Outpatient (CLI) | payer BC, SELFPAY ==
--- NOTE | 2022-09-25 07:18 | XR_ITS ---
WS: [email or web address] EXAMINATION: XR KUB [id number] REASON FOR EXAM: STONES COMPARISON: None available. ORDER DATE: 09/25/2022 7:20 AM FINDINGS: There is a nonspecific colonic gas pattern with scattered fecal content and gas. There is no sign of significant small bowel dilation. No pathologic abdominal calcification is seen. Numerous phlebolit hs are seen in the pelvic cavity. There has been previous cholecystectomy. A single surgical clip sit uated just above the right sacrum, possibly a dropped clip. XR/XR KUB [id number] IMPRESSION: No acute change
== END 2022-09-25 07:10 | disposition home or self-care (01) ==
LOC: RAD 07:12
PROVIDERS: PCP Internal Medicine; Visit Provider Urology
DX: N20.0 Calculus of kidney (principal)
CPT/HCPCS: 74018; 81003

== ENCOUNTER 2022-09-28 22:01 | Emergency (ER) | payer BC, SELFPAY ==
[2022-09-28 22:46] VITALS: BP 126/87; PULSE 69; RESP 16; TEMP 36.4; O2SAT 98
--- NOTE | 2022-09-29 00:58 | CTR_ITS ---
PROCEDURE INFORMATION: Exam: CT Abdomen And Pelvis Without Contrast Exam date and time: 09/29/2022 2:20 AM Age: 37 years old Clinical indication: Abdominal pain; Flank; Left; Additional info: Eval nephrolith TECHNIQUE: Imaging protocol: Computed tomography of the abdomen and pelvis without contrast. Radiation optimization: All CT scans at this facility use at least one of these dose optimization techniques: automated exposure control; mA and/or kV adjustment per patient size (includes targeted exams where dose is matched to clinical indication); or iterative reconstruction. REPORTING DATA: Count of CT and Cardiac NM exams in prior 12 months: This patient has received [address] and 0 known cardiac nuclear medicine studies in the 12 months prior to the current study. COMPARISON: CT kidney stone [id number] 10/26/2021 11:00 AM RADIATION DOSE METRICS: Total DLP (mGy-cm): 478.55 FINDINGS: Lungs: The visualized lung bases are clear. Liver: Liver is mildly enlarged. Gallbladder and bile ducts: Absent gallbladder. Pancreas: Unremarkable with no suspicious mass. No ductal dilation. Spleen: The spleen is not enlarged. No suspicious mass is noted. Adrenal glands: Normal. No mass. Kidneys and ureters: Right lower renal 1.4 cm cyst. Minimal bilateral nephrolithiasis. Mild left hydroureter. Left distal ureteral 4 mm calculus. This has passed slightly distally from 10/26/2021, if it is the same calculus. Stomach and bowel: Fecal filled colon. No small bowel obstruction, abscess or free air. Appendix: No evidence of appendicitis. Intraperitoneal space: Unremarkable. No free air. No suspicious fluid collection. Vasculature: Numerous pelvic phleboliths. Lymph nodes: No enlarged lymph nodes. Urinary bladder: Unremarkable as visualized. Reproductive: Absent uterus. Bones/joints: No acute fracture. Soft tissues: Partially assessed bilateral breast prosthesis. CT/CT kidney stone [id number] IMPRESSION: 1. Left distal ureteral 4 mm calculus causes mild obstruction. 2. Minimal bilateral nephrolithiasis and other chronic findings above. COMMENTS: Consistent with the [employer]'s Incidental Findings Committee white paper (J Am Sharon Radiol 2018): Any incidental renal lesion less than 1 cm or classified as too small to characterize, or any incidental cystic renal lesion characterized as simple-appearing, is likely benign. No follow-up imaging is recommended for these lesions per consensus recommendations based on imaging criteria.
[2022-09-29 01:26] VITALS: RESP 16
[2022-09-29] MEDS: morphine 4 mg/mL SDV 1 mL IVP (01:26)
[2022-09-29] MEDS: ketorolac 30 mg/mL INJ 15 MG IVP (01:26)
[2022-09-29 01:36] VITALS: BP 105/74; PULSE 88; RESP 16; O2SAT 96
[2022-09-29] MEDS: sodium chloride 0.9% 1,000 ML 999 ML IV (02:08)
[2022-09-29 02:10] LABS: HCG Qualitative Urine. Negative (Negative)
[2022-09-29 02:30] LABS: Bilirubin Urine 1+ (Negative); Blood Urine 3+ (Negative); Glucose Urine UA Norm (Normal); Ketones Urine Negative (Negative); Nitrate Urine Negative (Negative); Protein Urine 1+ (Negative); Specific Gravity, Urine 1.025 (1.005-1.030); Urine Appearance Cloudy (CLEAR); Urine Color Brown (Yellow); Urobilinogen Urine 1 mg/dL (Negative); pH Urine 5 (5-7)
[2022-09-29 02:31] LABS: Add Urine Microscopic? YES; Leukocyte Esterase Urine Negative (Negative)
[2022-09-29 02:35] LABS: Add Urine Culture? Yes; Bacteria Urine 2+ /hpf; Mucus Urine TRACE /hpf; RBC Urine TOO NUMEROUS TO CNT /hpf (0-2); Squamous Epithelial Cell Urine 0-4 /hpf (0-5)
[2022-09-29] MEDS: HYDROmorphone 1 mg/mL INJ 1 mL 0.5 MG IVP (02:48)
[2022-09-29 02:51] VITALS: BP 101/66; PULSE 76; RESP 14; O2SAT 98
--- NOTE | 2022-09-29 03:04 | ED_ITS ---
HPI - Abdominal Pain General: Chief Complaint: Abdominal Pain Stated Complaint: back pain, possible kidney stone Time Seen by Provider: 09/29/22 00:04 History of Present Illness: 29-year-old female with left-sided flank pain reminiscent of previous episodes of nephrolithiasis. Describes the pain as onset over the last 24 to 48 hours, aching and twisting in characterization, radiation to her groin and associated with dysuria. She states that she required lithotripsy for previous right-sided nephrolith. She is requesting pain control and has previously seen urology at this hospital. Denies fevers, sweats, chills, nausea, vomiting, GI symptoms. PFSH ED PFSH: Medical History Bilateral renal stones Breast cancer, right Essential tremor H/O malignant neoplasm of breast Surgical History H/O bilateral mastectomy 2016 H/O breast reconstruction LD flap on the right H/O section H/O oral surgery History of tonsillectomy Hx of cholecystectomy Port-A-Cath in place removed 06/11/20 S/P OUSMANE-BSO Family History Father CAD (coronary artery disease) Diabetes Hypertension Mother Cancer endometrial cancer Grandmother Cancer maternal colon and ovarian Brother Hypertension Denies family history of Anesthesia complication Bleeding disorder Social History Smoking and tobacco status: never smoked Alcohol intake: never Household members: spouse Marital status: Current occupational status: employed Physical Exam Narrative: EXAM NARRATIVE: CVA tenderness prominently on the left, none on the right, no abdominal tenderness, otherwise comfortably appearing with moist mucous membranes. Const: COMMON NORMALS: average body habitus and patient oriented x3 HENMT: COMMON NORMALS: normocephalic and atraumatic HEAD & SCALP: normocephalic and atraumatic Eye: COMMON NORMALS: Equal, round and reactive pupils present and EOMs intact bilaterally PUPIL: Yes Equal, round and reactive pupils present Neck/C-Spine: COMMON NORMALS: full ROM, no lymphadenopathy and no JVD Chest: COMMONS NORMALS: normal inspection of the chest and normal palpation of entire chest wall Resp: COMMON NORMALS: normal respiratory effort and No retractions Cardio: COMMON NORMALS: no JVD and regular rate RATE: regular rate GI: COMMON NORMALS: Normal to inspection, nondistended, normoactive bowel sounds present : COMMON NORMALS: No no CVA tenderness BLADDER/KIDNEY EXAM: No no CVA tenderness and Yes CVA tenderness on the left Back/Pelvis: COMMON NORMALS: negative for no CVA tenderness GENERAL BACK: Yes CVA tenderness Neuro: COMMON NORMALS: patient oriented x3 Course Vital Signs: Vital signs: Vital Signs Temperature 97.5 F L 09/28/22 22:46 Pulse Rate 76 09/29/22 02:51 Respiratory Rate 14 09/29/22 02:51 Blood Pressure 101/66 09/29/22 02:51 Pulse Oximetry 98 09/29/22 02:51 Oxygen Delivery Me thod 09/29/22 02:51 MDM - Abdominal Pain Medical Decision Making 37-year-old female with left sided flank pain reminiscent of previous episodes of nephrolithiasis. Vitals nonactionable, evidencing pain. Diagnoses considered include nephrolithiasis, septic stone, referred intra-abdominal surgical pathology, diverticulitis, viral inflammation, overlying zoster neuralgia, others. Social determinants of health including education, cancer survivor, [place]. Given history consistent with prior episodes feel most consistent with repeat nephrolithiasis. Will ensure not obstructing without severe hydronephrosis and at a reasonable size that 1 would expect passage. Provided narcotic pain medication, Toradol, intravenous fluids in the emergency department with improvement of the patient's symptoms. CT stone demonstrating 4 mm minimally obstructing nephrolith. Prescribed course of oxycodone and Zofran for relief of her symptoms. Lab Data Labs/Radiology: Radiology Impressions Abdomen/Pelvis CT 09/29/22 00:58 IMPRESSION: 1. Left distal ureteral 4 mm calculus causes mild obstruction. 2. Minimal bilateral nephrolithiasis and other chronic findings above. COMMENTS: Consistent with the [employer] [place] [employer]'s Incidental Findings Committee white paper (J Am Sharon Radiol 2018): Any incidental renal lesion less than 1 cm or classified as too small to characterize, or any incidental cystic renal lesion characterized as simple-appearing, is likely benign. No follow-up imaging is recommended for these lesions per consensus recommendations based on imaging criteria. Laboratory Results HCG, Qual Negative (Negative) 09/29/22 01:39 Urine Color Brown (Yellow) 09/29/22 01:39 Urine Appearance Cloudy (CLEAR) A 09/29/22 01:39 Urine pH 5 (5-7) 09/29/22 01:39 Ur Specific [place] 1.025 (1.005-1.030) 09/29/22 01:39 Urine Protein 1+ (Negative) H 09/29/22 01:39 Urine Glucose (UA) Norm (Normal) 09/29/22 01:39 Urine Ketones Negative (Negative) 09/29/22 01:39 Urine Blood 3+ (Negative) H 09/29/22 01:39 Urine Nitrate Negative (Negative) 09/29/22 01:39 Urine Bilirubin 1+ (Negative) H 09/29/22 01:39 Urine Urobilinogen 1 mg/dL (Negative) H 09/29/22 01:39 Ur Leukocyte Esterase Negative (Negative) 09/29/22 01:39 Urine RBC Too numerous to cnt /hpf (0-2) H 09/29/22 01:39 Urine WBC 5-10 /hpf (0-5) H 09/29/22 01:39 Ur Squamous Epith Cells 0-4 /hpf (0-5) H 09/29/22 01:39 Amorphous Sediment Not Reportable 09/29/22 01:39 Urine Bacteria 2+ /hpf (NONE) H 09/29/22 01:39 Urine Mucus Trace /hpf 09/29/22 01:39 Discharge Plan Discharge Clinical Impression: Nephrolithiasis Condition: Stable Prescriptions: New oxycodone 5 mg tablet 5 mg PO TID Qty: 14 0RF ondansetron HCl 8 mg tablet 8 mg PO DAILY 4 Days Qty: 14 0RF No Action levocetirizine [Xyzal] 5 mg tablet 5 mg PO DAILY PRN (Reason: Allergy Symptoms) trazodone 50 mg tablet 50 mg PO DAILY potassium citrate 10 mEq (1,080 mg) tablet extended release 10 meq PO BID Qty: 180 3RF famotidine 10 mg tablet 10 mg PO DAILY anastrozole 1 mg tablet See Rx Instructions .ROUTE .COMPLEX Qty: 90 3RF Dose Instruction: TAKE 1 TABLET BY MOUTH EVERY DAY Rx Instructions: TAKE 1 TABLET BY MOUTH EVERY DAY oxycodone-acetaminophen [Percocet] 5-325 mg tablet 1 tab PO Q6H PRN (Reason: Renal colic) 3 Days Qty: 12 0RF sumatriptan succinate 25 mg tablet 25 mg PO DAILY PRN (Reason: Migraine Headache) duloxetine 60 mg capsule,delayed release(DR/EC) 60 mg PO DAILY propranolol 10 mg tablet 20 mg PO DAILY Discharge Orders: Discharge ED (Routine); Ordered 09/29/22 Ordered By: Eris Hernandez Referrals: Shanda Cervantes MD [Primary Care Provider] - Discharge Diet: Advance as tolerated Discharge Activity: Resume usual activity Patient Instructions: Kidney Stones Activity Restrictions/Additional Instructions: Return to the emergency department if pain increases and cannot be controlled at home. Take 1000 mg of Tylenol and 400 mg of Motrin at breakfast lunch and dinner. Drink plenty fluids. Take additional tab of 5 mg oxycodone if your pain is not reduced to a tolerable level with the other 2 adjuncts. As discussed do not take the medicine if you no longer have the pain. Additionally you are provided Zofran. Coding Level of Care Code ED Administrative Manager for Maricel Dimas
--- NOTE | 2022-09-29 04:51 | PC.NURSE ---
Patient sent home with 8mg Zofran per MD order.
== END 2022-09-29 04:53 | disposition home or self-care (01) ==
PROVIDERS: Emergency Provider General Practice; PCP Internal Medicine
DX: N20.2 Calculus of kidney with calculus of ureter (principal); Z85.3 Personal history of malignant neoplasm of breast
CPT/HCPCS: 74176; 81001; 81025; 87086; 96361; 96374; 96375; 99285; J1170; J1885; J2270; J7030

== ENCOUNTER 2022-09-29 14:13 | Outpatient (CLI) | payer BC, SELFPAY ==
--- NOTE | 2022-09-29 14:23 | XR_ITS ---
WS: [email or web address] Exam: XR KUB [id number] Date/Time of Exam: 09/29/2022 2:23 PM Reason For Exam: STONES Small calcification superimpose the upper pole left kidney and may represent stones. No bowel obstruc tion or free air. No sign of organ enlargement. Signs of prior cholecystectomy. Additional surgical c lip in the mid right abdomen. Bony structures are intact. Nonspecific pelvic calcifications. XR/XR KUB [id number] IMPRESSION: 1. Small calcifications overlying the upper pole the left kidney and may repres ent stones. 2. No acute abdominal finding.
== END 2022-09-29 14:14 | disposition home or self-care (01) ==
PROVIDERS: PCP Internal Medicine; Visit Provider Urology
DX: N20.0 Calculus of kidney (principal); Q91 Trisomy 18 and Trisomy 13
CPT/HCPCS: 74018; 81003

== ENCOUNTER 2022-09-30 10:39 | Day surgery (SDC) | payer BC, SELFPAY ==
[2022-09-29 16:15] VITALS: BMI 27.4
[2022-09-30] VITALS (9 sets, daily range): BP systolic 95–112; BP diastolic 45–78; PULSE 55–76; RESP 12–16; TEMP 36.1–36.6; O2SAT 92–97
--- NOTE | 2022-09-30 10:43 | SC_ITS ---
WS: [email or web address] Exam: C-arm FL for Urology Date/Time of Exam: 09/30/2022 10:43 AM Reason For Exam: Left ureteroscopy Retrograde pyelogram is performed on the left with limited C-arm images of the left pelvis and abdome n. Opacification of the distal left ureter shows a prominent filling defect in the lower ureter that adelaida arently represents a known ureteral stone. . A second more delayed intraoperative C-arm image depicts a retrograde the catheter ending in the upper left abdomen. No other significant finding on this pruitt ited series.
--- NOTE | 2022-09-30 10:43 | XR_ITS ---
WS: [email or web address] Exam: XR KUB [id number] Date/Time of Exam: 09/30/2022 10:43 AM Reason For Exam: Preop left ureteroscopy No bowel obstruction or free air. No sign of organ enlargement. Postoperative changes in the right ab domen. Multiple nonspecific pelvic calcifications. Bony structures are intact. XR/XR KUB [id number] IMPRESSION: 1. No acute abdominal process.
--- NOTE | 2022-09-30 11:10 | W.PM.OPSUD ---
Surgery/Procedure H&P Update DATE OF PROCEDURE: September 30, 2022 DATE H&P PERFORMED: 09/29/22 H&P UPDATE INFORMATION: I have reviewed H&P completed within last 30 days, I have examined patient prior to procedure, No changes to prior documentation and H&P is in [facility] E[facility] on date indicated CHANGES TO PREVIOUS DOCUMENTATION: Stone more readily identified on today's KUB. Same location. PREOP DIAGNOSIS: left distal ureteral stone PLANNED PROCEDURE: Operation Date: 09/30/22 12:20 Proposed Procedures p CYSTOSCOPY LEFT RETROGRADE, URETEROSCOPY, LASER , STENT [id number] MOD 26 N20.0(Not Applicable) - Raghav Rojas MD s Retrograde Pyelogram(Left) - MD steven Gottlieb Ureteroscopy(Left) - MD steven Gottlieb Laser Lithotripsy(Left) - MD steven Gottlieb Ureteral Stent Placement(Left) - Raghav Rojas MD
[2022-09-30] MEDS: sodium chloride 0.9% 1,000 ML 30 ML IV (11:37)
[2022-09-30] MEDS: HYDROmorphone 1 mg/mL INJ 1 mL 0.5 MG IVP (11:49)
[2022-09-30] MEDS: levofloxacin-dextrose 5 % 500 MG/100 ML PREMIX 100 MG IV (11:51)
[2022-09-30] MEDS: iohexol 350 mg/mL 100 mL Btl 10 ML XX (12:18)
--- NOTE | 2022-09-30 12:34 | PM.OP ---
Operative Report Date of procedure: September 30, 2022 Pre-op diagnosis: left distal ureteral stone Post-op diagnosis: left distal ureteral stone Procedure done: 1. Cystoscopy, LEFT retrograde, ureteroscopy, laser, stent Implants: Left ureteral stent (4.5 St Helenian by 26 cm double-pigtail no string) Specimens removed/disposition: Stone fragments Pathology: Stone fragments Surgeon: Bob Estimated blood loss: Minimal Urine output: Not measured Complications: None Findings: Anesthesia: General Condition: Stable Disposition: PACU Intraoperative findings: Stone in the expected position. Completely fragmented with laser Stent left indwelling. Fragment sent for pathologic evaluation Brief History: Viviana is a delightful 37-year-old white female with multiple stone history who recently presented with complaints of left renal colicky type symptoms and CT scan demonstrated an obstructing 4 to 6 mm left distal ureteral stone. Symptoms at times were debilitating and ultimately she elected to proceed with treatment. Procedure: After routine preoperative evaluation examination and obtaining of informed consent she was taken to the operating suite on 09/22/2022 where general anesthesia with without difficulty after appropriate timeout was performed, SCDs confirmed to be functioning, preoperative antibiotics administered, beta-manju protocol confirmed. Prepped and draped in usual sterile fashion in dorsolithotomy position pain careful attention to avoiding pressure points. 21 St Helenian cystoscope with 30 degree lens was introduced into the urethral meatus and advanced into the bladder under videoscopy. Bladder was systematically examined. No stone An 8 [facility] Helenian cone-tip catheter was intubated into the left ureteral orifice for left retrograde ureteropyelogram demonstrating: Flexible tip guidewire was then advanced up the left ureter bypassing the stone. A second guidewire was passed. The inner portion of a 24 cm ureteral access sheath was advanced over the working wire for dilation and then the entire sheath was passed to just below the level of the stone over the working wire. The other wire was secured to the drapes as a safety wire. A 7 [facility] Helenian offset semirigid ureteroscope was then advanced through the working sheath over the guidewire and the stone was encountered with in the expected position and fragmented with a 365 ?m thulium superpulse laser fiber into mostly sand and very small pieces. Fragments were removed via flushing as well as a 1.9 St Helenian basket. Scope was passed to the proximal ureter and no additional fragments were identified having migrated proximally. It was decided to leave a stent indwelling and a 4.5 St Helenian by 26 cm double-pigtail stent was advanced over the guidewire through the cystoscope into appropriate position as confirmed via fluoroscopy and cystoscopy. No string Stent was confirmed to be functioning. Bladder was drained the procedure was completed. She tolerated procedure well without complications and was awakened in the operating room and returned to the recovery room in stable condition. PLANS: 1. Anticipate discharge from outpatient surgery 2. Follow-up next week for cystoscopy and stent removal
--- NOTE | 2022-09-30 12:36 | ANES.PREANE2 ---
Pre-Anesthetic Assessment Height/Weight: Height 1.65 m Weight 74.843 kg Temp Pulse Resp BP Pulse Ox O2 Del Method 97.5 F L 66 16 112/52 97 09/30/22 11:07 09/30/22 11:07 09/30/22 11:07 09/30/22 11:07 09/30/22 11:07 09/30/22 11:09 Preop Diagnosis: left distal ureteral stone Operation Date: 09/30/22 12:20 Proposed Procedures p CYSTOSCOPY LEFT RETROGRADE, URETEROSCOPY, LASER , STENT [id number] MOD 26 N20.0(Not Applicable) - Raghav Rojas MD s Retrograde Pyelogram(Left) - MD steven Gottlieb Ureteroscopy(Left) - MD steven Gottlieb Laser Lithotripsy(Left) - MD steven Gottlieb Ureteral Stent Placement(Left) - Raghav Rojas MD Familial anesthetic complications: none Was Beta Bela taken within 24 hours: Yes Was Clonidine taken within 24 hours: N/A Last intake: Intake Last Liquid Date 09/29/22 Last Liquid Time 21:00 Last Solid Date 09/29/22 Last Solid Time 17:30 Social No alcohol and No tobacco Exam alert, oriented x 3, clear to auscultation bilaterally and regular rate & rhythm Airway Submandibular: within normal limits Cervical ROM: within normal limits Mallampati: Class II Dentition: full GI Gastroesophageal Reflux Disease Neuropsych Headache tremor Anesthetic Plan ASA status: 2 Anesthesia: General Medications/Allergies Home Medications Medication Instructions Recorded Confirmed Last Taken Type duloxetine 60 mg capsule,delayed 60 mg PO DAILY 10/26/21 09/30/22 09/29/22 History release sumatriptan succinate 25 mg tablet 25 mg PO DAILY PRN Migraine 10/26/21 09/30/22 Unknown History Headache famotidine 10 mg tablet 10 mg PO DAILY 07/11/22 09/30/22 09/29/22 History propranolol 10 mg tablet 30 mg PO DAILY 07/11/22 09/30/22 09/30/22 06:00 History trazodone 50 mg tablet 50 mg PO DAILY PRN Sleep 07/11/22 09/30/22 09/22/22 History potassium citrate 10 mEq (1,080 10 meq PO BID #180 tabs 09/09/22 09/29/22 Unknown Rx mg) tablet,extended release anastrozole 1 mg tablet 1 mg PO DAILY 09/29/22 09/30/22 09/29/22 History ondansetron HCl 8 mg tablet 8 mg PO PRN PRN Nausea 09/29/22 09/29/22 Unknown History oxycodone-acetaminophen 5 mg-325 1 tab PO Q6H PRN Renal colic 3 09/29/22 09/30/22 09/30/22 06:00 Rx mg tablet (Percocet) days #20 tabs Allergies Allergy/AdvReac Type Severity Reaction Status Date / Time No Known Allergies Allergy Verified 09/29/22 16:11 Current Medications Generic Name Dose Route Start Last Admin Trade Name Freq PRN Reason Stop Dose Admin Hydromorphone HCl 0.5 mg 09/30/22 10:43 09/30/22 11:49 Hydromorphone 1 Mg/Ml Inj 1 Ml IVP 0.5 mg ONCE PRN Administration For preop pain/anxiety Sodium Chloride 1,000 mls @ 30 mls/hr 09/30/22 10:45 09/30/22 11:37 Sodium Chloride 0.9% IV 10/01/22 10:44 30 mls/hr .Q24H MESSI Administration PFSH Anesthesia Medical History Bilateral renal stones Breast cancer, right Essential tremor H/O malignant neoplasm of breast Surgical History H/O bilateral mastectomy 2016 H/O breast reconstruction LD flap on the right H/O section H/O oral surgery History of tonsillectomy Hx of cholecystectomy Port-A-Cath in place removed 06/11/20 S/P OUSMANE-BSO Family History Father CAD (coronary artery disease) Diabetes Hypertension Mother Cancer endometrial cancer Grandmother Cancer maternal colon and ovarian Brother Hypertension Denies family history of Anesthesia complication Bleeding disorder Social History Smoking and tobacco status: never smoked Alcohol intake: never Household members: spouse Marital status: Current occupational status: employed Data Anesthesia Cardiac Studies: No Data to Display
[2022-09-30] MEDS: fentaNYL 50 mcg/mL INJ 2mL IVP ×2 (13:01→14:20)
[2022-09-30] MEDS: ketorolac 30 mg/mL INJ IVP (13:35)
[2022-09-30] MEDS: ondansetron 2 mg/ML SDV 2 mL 4 MG IVP (14:30)
--- NOTE | 2022-09-30 14:49 | SUR.PHASEII ---
14:15 PT STILL WITH LEFT FLANK PAIN. DOCTOR ALYSHA INFORMED OF PT S CONDITION. PT MEDICATED FOR PAIN AND NAUSEA.
[2022-10-07 03:40] LABS: Stone Source LT URETER
== END 2022-09-30 14:45 | disposition home or self-care (01) ==
PROVIDERS: PCP Internal Medicine; Visit Provider Urology
PROC: 0TJB8ZZ Inspection of Bladder, Via Natural or Artificial Opening Endoscopic (ICD-10-PCS; CPT 52000; principal; 2022-09-30 12:00)
PROC: (CPT 74420; 2022-09-30 12:00)
PROC: 0TJ98ZZ Inspection of Ureter, Via Natural or Artificial Opening Endoscopic (ICD-10-PCS; CPT 52351; 2022-09-30 12:00)
PROC: (CPT 52356; 2022-09-30 12:00)
PROC: (CPT 50605; 2022-09-30 12:00)
DX: N20.1 Calculus of ureter (principal); K21.9 Gastro-esophageal reflux disease without esophagitis
CPT/HCPCS: 52356; 74018; 76000; 82365; 88300; J1100; J1170; J1885; J1956; J2250; J2405; J2704; J3010; J3490; J7030; Q9967

== ENCOUNTER 2022-12-29 08:04 | Outpatient (CLI) | payer BC, SELFPAY ==
--- NOTE | 2022-12-29 08:12 | XR_ITS ---
WS: [id number] Exam: XR KUB [id number] Date/Time of Exam: 12/29/2022 8:16 AM Reason For Exam: stones No bowel obstruction or free air. No sign of organ enlargement. Signs of prior cholecystectomy. Singl e surgical clip seen in the right lower abdomen also. Nonspecific bilateral pelvic calcifications. Mi ld levoscoliosis of the lumbar spine. XR/XR KUB [id number] IMPRESSION: 1. No acute abdominal finding.
== END 2022-12-29 08:05 | disposition home or self-care (01) ==
PROVIDERS: PCP Internal Medicine; Visit Provider Urology
DX: N20.1 Calculus of ureter (principal)
CPT/HCPCS: 74018; 81003

== ENCOUNTER 2023-01-21 13:00 | Oncology outpatient (recurring) (ONCR) | payer OTHER, SELFPAY ==
[2023-01-20 14:08] VITALS: BP 119/79; PULSE 81; RESP 18; TEMP 36.2; O2SAT 99
[2023-01-20 14:24] LABS: Basophils # 0.1 10^3/uL (0.0-0.1); Eosinophils # 0.2 10^3/uL (0.0-0.8); Eosinophils % 2.5 %; Hematocrit 39.6 % (37.0-47.0); Lymphocytes # 2.1 10^3/uL (0.8-4.8); Lymphocytes % 28.7 %; Mean Corpuscular HGB Conc 32.8 g/dL (30.0-36.0); Mean Corpuscular Hemoglobin 27.9 pg (28.0-34.0); Mean Platelet Volume 9.1 fL (7.4-10.4); Monocytes # 0.6 10^3/uL (0.2-0.9); Monocytes % 8.3 %; Neutrophils # 4.31 10^3/uL (1.8-7.7); Neutrophils % 59.2 %; Nucleated Red Blood Cells % 0 %; Platelet Count 313 10^3/cmm (130-400); Red Blood Count 4.66 10^6/uL (4.1-5.3); Red Cell Distribution Width 12.5 % (12.1-15.1); White Blood Count 7.3 10^3/uL (4.0-10.0)
[2023-01-20 14:42] LABS: Alanine Aminotransferase 37 U/L (0-33); Albumin Level 4.1 g/dL (3.5-5.2); Alkaline Phosphatase 94 U/L (35-105); Blood Urea Nitrogen 16 mg/dL (6-20); Calcium 9.4 mg/dL (8.5-10.5); Carbon Dioxide 24 mmol/L (22-29); Chloride 103 mmol/L (98-107); Globulin 2.7 g/dL (1.3-4.6); Glomerular Filtration Rate 111.9 mL/min (90-130); Glucose 98 mg/dL (65-115); Osmolality Calculated 287 mOsm/kg (285-295); Sodium 138 mmol/L (136-145); Total Bilirubin 0.2 mg/dL (0.15-1.2); Total Protein 6.8 g/dL (6.6-8.7)
[2023-01-20 14:43] LABS: Anion Gap 15.4 (5-19); Aspartate Amino Transferase 26 U/L (0-32); Potassium 4.4 mmol/L (3.5-5.1)
== END 2023-02-02 23:59 | disposition home or self-care (01) ==
PROVIDERS: PCP Internal Medicine; Visit Provider Internal Medicine Hematology & Oncology
DX: C50.911 Malignant neoplasm of unspecified site of right female breast (principal); Z13.820 Encounter for screening for osteoporosis
CPT/HCPCS: 36415; 80053; 85025

== ENCOUNTER 2023-03-27 07:51 | Oncology outpatient (recurring) (ONCR) | payer OTHER, SELFPAY ==
[2023-03-27 08:20] VITALS: BP 125/77; PULSE 76; RESP 16; TEMP 36.6; O2SAT 93
[2023-03-27 08:55] LABS: Calcium 9.5 mg/dL (8.5-10.5)
[2023-03-27 10:25] VITALS: BP 125/77; PULSE 76; RESP 16; TEMP 36.6; O2SAT 93
[2023-03-27] MEDS: denosumab 60 mg SDV SUBCUT (10:25)
== END 2023-04-04 23:59 | disposition home or self-care (01) ==
PROVIDERS: PCP Internal Medicine; Visit Provider Internal Medicine Hematology & Oncology
DX: Z53.9 Procedure and treatment not carried out, unspecified reason (principal); C50.911 Malignant neoplasm of unspecified site of right female breast; Z13.820 Encounter for screening for osteoporosis
CPT/HCPCS: 36415; 82310; 96372; J0897

== ENCOUNTER 2023-08-03 07:53 | Oncology outpatient (recurring) (ONCR) | payer OTHER, SELFPAY ==
[2023-08-03 08:11] VITALS: BP 124/78; PULSE 65; RESP 16; TEMP 36.6; O2SAT 97
[2023-08-03 08:21] LABS: Basophils % 0.4 %; Hematocrit 40.2 % (36-47); Lymphocytes # 0.9 10^3/uL (0.8-4.8); Lymphocytes % 11.1 %; Mean Corpuscular HGB Conc 33.3 g/dL (30-55); Mean Corpuscular Hemoglobin 28.2 pg (27-33); Mean Corpuscular Volume 84.5 fl (85-98); Mean Platelet Volume 9.1 fL (7.4-10.4); Monocytes # 0.3 10^3/uL (0.2-0.9); Monocytes % 3.3 %; Neutrophils # 7.14 10^3/uL (1.8-7.7); Neutrophils % 84.5 %; Nucleated Red Blood Cells % 0 %; Platelet Count 329 10^3/cmm (157-399); Red Blood Count 4.76 10^6/uL (3.85-5.65); Red Cell Distribution Width 12.8 % (12.1-15.1); White Blood Count 8.45 10^3/uL (3.29-11.43)
[2023-08-03 08:41] LABS: Alanine Aminotransferase 55 U/L (0-33); Albumin Level 4.3 g/dL (3.5-5.2); Alkaline Phosphatase 69 U/L (35-105); Anion Gap 16.1 (5-19); Aspartate Amino Transferase 57 U/L (0-32); Blood Urea Nitrogen 15 mg/dL (6-20); Calcium 9.5 mg/dL (8.5-10.5); Carbon Dioxide 22 mmol/L (22-29); Chloride 105 mmol/L (98-107); Globulin 3.1 g/dL (1.3-4.6); Glomerular Filtration Rate 79.9 mL/min (90-130); Glucose 184 mg/dL (65-115); Osmolality Calculated 294 mOsm/kg (285-295); Potassium 4.1 mmol/L (3.5-5.1); Sodium 139 mmol/L (136-145); Total Bilirubin 0.2 mg/dL (0.15-1.2); Total Protein 7.4 g/dL (6.6-8.7)
== END 2023-08-05 23:59 | disposition home or self-care (01) ==
PROVIDERS: PCP Internal Medicine; Visit Provider Internal Medicine Medical Oncology
DX: C50.911 Malignant neoplasm of unspecified site of right female breast (principal)
CPT/HCPCS: 36415; 80053; 85025

== ENCOUNTER 2023-10-13 08:16 | Oncology outpatient (recurring) (ONCR) | payer OTHER, SELFPAY ==
[2023-10-13 08:47] LABS: Basophils # 0.1 10^3/uL (0.0-0.1); Eosinophils # 0.1 10^3/uL (0.0-0.8); Eosinophils % 1.5 %; Hematocrit 40.9 % (36-47); Lymphocytes # 2.1 10^3/uL (0.8-4.8); Lymphocytes % 30.7 %; Mean Corpuscular HGB Conc 33.3 g/dL (30-55); Mean Corpuscular Hemoglobin 28.2 pg (27-33); Mean Corpuscular Volume 84.9 fl (85-98); Mean Platelet Volume 8.9 fL (7.4-10.4); Monocytes # 0.5 10^3/uL (0.2-0.9); Monocytes % 6.6 %; Neutrophils # 4.08 10^3/uL (1.8-7.7); Neutrophils % 59.9 %; Nucleated Red Blood Cells % 0 %; Platelet Count 311 10^3/cmm (157-399); Red Blood Count 4.82 10^6/uL (3.85-5.65); Red Cell Distribution Width 12.5 % (12.1-15.1); White Blood Count 6.81 10^3/uL (3.29-11.43)
[2023-10-13 09:05] LABS: Alanine Aminotransferase 19 U/L (0-33); Albumin Level 4.1 g/dL (3.5-5.2); Alkaline Phosphatase 64 U/L (35-105); Anion Gap 14.9 (5-19); Aspartate Amino Transferase 18 U/L (0-32); Blood Urea Nitrogen 14 mg/dL (6-20); Calcium 9.4 mg/dL (8.5-10.5); Carbon Dioxide 25 mmol/L (22-29); Chloride 103 mmol/L (98-107); Globulin 3.3 g/dL (1.3-4.6); Glomerular Filtration Rate 93.2 mL/min (90-130); Glucose 94 mg/dL (65-115); Osmolality Calculated 288 mOsm/kg (285-295); Potassium 3.9 mmol/L (3.5-5.1); Sodium 139 mmol/L (136-145); Total Bilirubin 0.3 mg/dL (0.15-1.2); Total Protein 7.4 g/dL (6.6-8.7)
[2023-10-13] MEDS: denosumab 60 mg SDV SUBCUT (10:14)
[2023-10-13 11:39] LABS: Free T4 Free Thyroxine 1.11 ng/dL (0.82-1.77)
== END 2023-11-03 23:59 | disposition home or self-care (01) ==
PROVIDERS: Internal Medicine; PCP Internal Medicine; Visit Provider Internal Medicine Medical Oncology
DX: C50.911 Malignant neoplasm of unspecified site of right female breast (principal); Z53.9 Procedure and treatment not carried out, unspecified reason; Z13.820 Encounter for screening for osteoporosis
CPT/HCPCS: 80053; 84439; 84443; 85025; 96372; J0897

== ENCOUNTER 2024-04-13 11:36 | Outpatient (CLI) | payer OTHER, SELFPAY ==
[2024-04-13 12:24] LABS: Alanine Aminotransferase 14 U/L (0-33); Albumin Level 4.4 g/dL (3.5-5.2); Alkaline Phosphatase 74 U/L (35-105); Anion Gap 14.5 (5-19); Aspartate Amino Transferase 20 U/L (0-32); Blood Urea Nitrogen 13 mg/dL (6-20); Calcium 8.8 mg/dL (8.5-10.5); Carbon Dioxide 24 mmol/L (22-29); Chloride 106 mmol/L (98-107); Globulin 3.3 g/dL (1.3-4.6); Glomerular Filtration Rate 111.3 mL/min (90-130); Glucose 100 mg/dL (65-115); Osmolality Calculated 292 mOsm/kg (285-295); Potassium 3.5 mmol/L (3.5-5.1); Sodium 141 mmol/L (136-145); Total Bilirubin 0.4 mg/dL (0.15-1.2); Total Protein 7.7 g/dL (6.6-8.7)
[2024-04-13 13:17] LABS: Basophils # 0.1 10^3/uL (0.0-0.1); Basophils % 0.9 %; Eosinophils # 0.1 10^3/uL (0.0-0.8); Eosinophils % 1.7 %; Hematocrit 46.6 % (36-47); Lymphocytes # 2.3 10^3/uL (0.8-4.8); Lymphocytes % 30.5 %; Mean Corpuscular HGB Conc 32.8 g/dL (30-55); Mean Corpuscular Hemoglobin 27.8 pg (27-33); Mean Corpuscular Volume 84.7 fl (85-98); Mean Platelet Volume 9.6 fL (7.4-10.4); Monocytes # 0.4 10^3/uL (0.2-0.9); Monocytes % 5.7 %; Neutrophils # 4.56 10^3/uL (1.8-7.7); Neutrophils % 60.8 %; Nucleated Red Blood Cells % 0 %; Platelet Count 350 10^3/cmm (157-399); Red Cell Distribution Width 12.9 % (12.1-15.1); White Blood Count 7.51 10^3/uL (3.29-11.43)
== END 2024-04-13 11:37 | disposition home or self-care (01) ==
LOC: LAB 11:38
PROVIDERS: PCP Internal Medicine; Visit Provider Nurse Practitioner Family
DX: C50.911 Malignant neoplasm of unspecified site of right female breast (principal)
CPT/HCPCS: 80053; 85025

== ENCOUNTER 2024-04-14 14:55 | Oncology outpatient (recurring) (ONCR) | payer OTHER, SELFPAY ==
[2024-04-14] MEDS: denosumab 60 mg SDV SUBCUT (15:42)
== END 2024-05-05 23:59 | disposition home or self-care (01) ==
PROVIDERS: PCP Internal Medicine; Visit Provider Internal Medicine Hematology & Oncology
DX: C50.911 Malignant neoplasm of unspecified site of right female breast (principal); Z78.0 Asymptomatic menopausal state; Z79.899 Other long term (current) drug therapy
CPT/HCPCS: 96372; J0897

== ENCOUNTER 2024-07-18 13:00 | Outpatient (CLI) | payer OTHER, SELFPAY ==
--- NOTE | 2024-07-18 13:00 | XR_ITS ---
WS: [id number] DEXA (DUAL ENERGY X-RAY ABSORPTIOMETRY) Bone mineral density was performed using a Headplay machine. HISTORY: asymptomatic post menopausal state COMPARISON: 07/17/2022 Lumbar spine BMD (L1-L4): 0.903 g/cm2 T score: -2.3 Z score: -2.8 Total hip BMD: Left: 0.930 g/cm2. T score: -0.6 Z score: -0.7 Right: 0.932 g/cm2. T score: -0.6 Z score: -0.7 10 year probability of a major osteoporotic fracture is 2.0%. Compared to the prior study from 07/17/2022. Lumbar spine bone mineral density has increased by 2.1%. Bilateral hips bone mineral density has increased by 3.6%. XR/XR DEXA axial skeleton* [id number] IMPRESSION: OSTEOPENIA based upon the WHO classification for females. Significant increase in bone mineral density within both the lumbar spine and h ips since the prior study.
== END 2024-07-18 13:01 | disposition home or self-care (01) ==
PROVIDERS: PCP Internal Medicine; Visit Provider Nurse Practitioner Family
DX: Z78.0 Asymptomatic menopausal state (principal); M85.80 Other specified disorders of bone density and structure, unspecified site
CPT/HCPCS: 77080

== ENCOUNTER 2024-10-13 13:14 | Oncology outpatient (recurring) (ONCR) | payer OTHER, SELFPAY ==
[2024-10-13 14:01] LABS: Basophils # 0.1 10^3/uL (0.0-0.1); Basophils % 0.9 %; Eosinophils # 0.1 10^3/uL (0.0-0.8); Eosinophils % 1.8 %; Hematocrit 39.8 % (36-47); Lymphocytes # 2.3 10^3/uL (0.8-4.8); Lymphocytes % 33.3 %; Mean Corpuscular HGB Conc 33.2 g/dL (30-55); Mean Corpuscular Hemoglobin 28.3 pg (27-33); Mean Corpuscular Volume 85.4 fl (85-98); Mean Platelet Volume 9.3 fL (7.4-10.4); Monocytes # 0.6 10^3/uL (0.2-0.9); Monocytes % 8.4 %; Neutrophils # 3.79 10^3/uL (1.8-7.7); Neutrophils % 55.5 %; Nucleated Red Blood Cells % 0 %; Platelet Count 277 10^3/cmm (157-399); Red Blood Count 4.66 10^6/uL (3.85-5.65); Red Cell Distribution Width 12.1 % (12.1-15.1); White Blood Count 6.82 10^3/uL (3.29-11.43)
[2024-10-13 14:18] LABS: Alanine Aminotransferase 10 U/L (0-33); Albumin Level 4.4 g/dL (3.5-5.2); Alkaline Phosphatase 60 U/L (35-105); Anion Gap 15.1 (5-19); Aspartate Amino Transferase 16 U/L (0-32); Blood Urea Nitrogen 12 mg/dL (6-20); Calcium 9.6 mg/dL (8.5-10.5); Carbon Dioxide 24 mmol/L (22-29); Chloride 105 mmol/L (98-107); Globulin 2.9 g/dL (1.3-4.6); Glomerular Filtration Rate 92.7 mL/min (90-130); Glucose 84 mg/dL (65-115); Osmolality Calculated 289 mOsm/kg (285-295); Potassium 4.1 mmol/L (3.5-5.1); Sodium 140 mmol/L (136-145); Total Bilirubin 0.2 mg/dL (0.15-1.2); Total Protein 7.3 g/dL (6.6-8.7)
[2024-10-13] MEDS: denosumab 60 mg SDV SUBCUT (15:26)
== END 2024-11-02 23:59 | disposition home or self-care (01) ==
LOC: ONCMED 13:15
PROVIDERS: Nurse Practitioner Family; PCP Internal Medicine; Visit Provider Internal Medicine Hematology & Oncology
DX: M85.80 Other specified disorders of bone density and structure, unspecified site (principal); Z79.899 Other long term (current) drug therapy; T45.1X5A Adverse effect of antineoplastic and immunosuppressive drugs, initial encounter
CPT/HCPCS: 36415; 80053; 85025; 96372; J0897

== ENCOUNTER 2024-12-09 06:40 | Emergency (ER) | payer OTHER, SELFPAY ==
[2024-12-09 06:46] VITALS: BP 125/71; PULSE 95; RESP 17; TEMP 36.7; O2SAT 99; BMI 26.2
[2024-12-09 08:55] LABS: Bilirubin Urine Negative (Negative); Blood Urine 3+ (Negative); Glucose Urine UA Negative (Normal); Ketones Urine Trace (Negative); Leukocyte Esterase Urine Trace (Negative); Nitrate Urine Negative (Negative); Protein Urine 1+ (Negative); Specific Gravity, Urine 1.011 (1.005-1.030); Urine Appearance Clear (CLEAR); Urine Color Yellow (Yellow)
--- NOTE | 2024-12-09 08:55 | CT_ITS ---
WS: [id number] CT ABDOMEN PELVIS TECHNIQUE: Noncontrast CT of the abdomen and pelvis with coronal and sagittal reformatted images. CLINICAL INFORMATION: flank pain COMPARISON: 2022 DLP: 456.[address] scans at [facility] use at least one of these dose optimization techniques: automated exposure control; mA and/or kV adjustment per patient size (includes targeted exams where dose is matched to clinical indication); or iterative reconstruction. FINDINGS: No obstructing renal or ureteral calculi. No hydronephrosis. A few tiny nonobstructing calyceal tip calculi bilaterally. Pelvic phleboliths. Cholecystectomy clips. Tiny esophageal hernia. Bilateral breast implants. Noncontrast pancreas and spleen. Lung bases are well aerated. Normal caliber abdominal aorta. Tiny fat-containing umbilical hernia. Normal sigmoid colon. Normal appendix in the RIGHT lower quadrant. No evidence of acute appendicitis. No other acute findings. CT/CT kidney stone [id number] IMPRESSION: 1. No obstructing renal or ureteral calculi. Mild dilatation of the LEFT renal pelvis similar to the prior studies with mild LEFT ureterectasis although no o bstructing calculi. Findings may be due to recently passed calculus 2. Bilateral tiny nonobstructing calyceal tip calculi. 3. Cholecystectomy clips. 4. Normal appendix in the RIGHT lower quadrant. 5. No other acute findings.
[2024-12-09 08:58] LABS: Bacteria Urine None Seen /hpf; Hyaline Casts Urine 2.87 /lpf; RBC Urine >100 /hpf (0-2); Squamous Epithelial Cell Urine 0-5 /hpf (0-5)
--- NOTE | 2024-12-09 09:00 | W.ED.ABDPA2 ---
HPI - Abdominal Pain General: Chief Complaint: Abdominal Pain Stated Complaint: LT abd pain Time Seen by Provider: 12/09/24 07:07 History of Present Illness: 39-year-old female with a known history of kidney stones presents to the emergency department chief complaint of left flank pain that started yesterday but then went away that returned late last night/early this morning. Patient reports darkening of her urine reports pelvic pressure and pain reporting a prior history of lithotripsy as well as surgical removal in the past she has a known history of noted spongy kidneys as per Dr. Rojas her urologist that used to work at [employer]. Patient endorses the pain comes and goes anyways endorsing moderate nausea with it denying any fever. The patient presents to the emergency department for further assessment and management. Associated Symptoms: Reports dysuria; Denies chills, fever(s), nausea and vomiting Related Data Home Medications ?Medication ?Instructions ?Recorded ?Confirmed famotidine 10 mg tablet 10 mg PO DAILY 07/11/22 10/13/24 propranolol 10 mg tablet 30 mg PO DAILY 07/11/22 10/13/24 trazodone 50 mg tablet 50 mg PO DAILY PRN Sleep 07/11/22 10/13/24 Bacillus coagulans 250 million 500 mmu cells PO DAILY 10/13/24 10/13/24 cell chewable tablet (Digestive Advantage Probiotic Gummy) cyanocobalamin (vitamin B-12) 100 mcg SUBCUT DAILY 10/13/24 10/13/24 1,000 mcg/mL injection solution loratadine 10 mg tablet (Claritin) 10 mg PO DAILY 10/13/24 10/13/24 magnesium glycinate mg PO DAILY 10/13/24 10/13/24 multivitamin with iron 1 tab PO DAILY 10/13/24 10/13/24 semaglutide 0.25 mg or 0.5 mg (2 mg SUBCUT .weekly 10/13/24 10/13/24 mg/3 mL) subcutaneous pen injector (Ozempic) Previous Rx's ?Medication ?Instructions ?Recorded ketorolac 10 mg tablet 10 mg PO Q8H PRN pain 3 days #10 12/09/24 tabs ondansetron 4 mg disintegrating 4 mg PO Q8H PRN nausea and 12/09/24 tablet vomiting 4 days #14 tabs Allergies Allergy/AdvReac Type Severity Reaction Status Date / Time No Known Allergies Allergy Verified 10/13/24 14:51 Review of Systems General: Reports: 10 or more systems reviewed and unremarkable except in HPI and below Const: Denies: fever(s), chills, fatigue or malaise Eyes: Denies: change in vision or blurry vision Card: Denies: chest pain or palpitations Resp: Denies: dyspnea or productive cough GI: Denies: abdominal pain, nausea or vomiting : Reports: flank pain, dysuria and urinary frequency Musc: Denies: extremity pain or extremity swelling Skin/Breast: Denies: rash or pruritus Neuro: Denies: headache(s) Psych: Denies: anxiety or depression Abdoul/Lymph: Denies: easy bleeding All/Imm: Denies: urticaria, throat swelling or facial swelling PFSH ED PFSH: Medical History Hx of nephrolithotomy with removal of calculi Bilateral renal stones Breast cancer, right Essential tremor H/O malignant neoplasm of breast Surgical History H/O oral surgery S/P OUSMANE-BSO Hx of cholecystectomy Port-A-Cath in place removed 06/11/20 H/O breast reconstruction LD flap on the right H/O section History of tonsillectomy H/O bilateral mastectomy 2017 Family History Father CAD (coronary artery disease) Diabetes Hypertension Mother Cancer endometrial cancer Grandmother Cancer maternal colon and ovarian Brother Hypertension Denies family history of Anesthesia complication Bleeding disorder Social History Smoking and tobacco/nicotine status: never used tobacco/nicotine Alcohol intake: never Substance/Drug Use: never Household members: spouse Marital status: Current occupational status: employed Physical Exam Const: COMMON NORMALS: patient oriented x3 and healthy appearing; apparent distress (In moderate distress distress) HENMT: COMMON NORMALS: normocephalic and atraumatic HEAD & SCALP: normocephalic and atraumatic Eye: COMMON NORMALS: Equal, round and reactive pupils present and EOMs intact bilaterally PUPIL: Yes Equal, round and reactive pupils present Neck/C-Spine: COMMON NORMALS: full ROM, supple and no JVD Lymph: LYMPHATIC: no lymphadenopathy noted Chest: COMMONS NORMALS: normal inspection of the chest and normal palpation of entire chest wall Resp: COMMON NORMALS: normal respiratory effort, No retractions and clear to auscultation bilaterally EFFORT & INSPECTION: Yes able to speak in complete sentences and Yes symmetric chest movement AUSCULTATION: clear to auscultation bilaterally Cardio: COMMON NORMALS: no JVD, regular rate and regular rhythm RATE: regular rate RHYTHM: regular rhythm GI: COMMON NORMALS: non-tender; negative for Normal to inspection, nondistended, normoactive bowel sounds present and negative for Soft to palpation INSPECTION: Yes normal to inspection PALPATION: No Soft to palpation OTHER: Moderate pain appreciated to left lower abdomen with no guarding or rebound : COMMON NORMALS: No no CVA tenderness (Left CVA tenderness with radiation to the left lower groin region) BLADDER/KIDNEY EXAM: No no CVA tenderness (Left CVA tenderness with radiation to the left lower groin region) Back/Pelvis: COMMON NORMALS: negative for no CVA tenderness (Left CVA tenderness with radiation to the left lower groin region) Extremity: COMMON NORMALS: normal to inspection and full ROM Neuro: COMMON NORMALS: patient oriented x3, CN's II-XII intact bilaterally, moves all extremities and no focal motor deficits Psych: COMMON NORMALS: mental status grossly normal, Normal thought process present, cooperative and normal affect THOUGHT PROCESS: Normal thought process present Skin: COMMON NORMALS: no rashes or lesions noted GENERAL SKIN EXAM: no rashes or lesions noted Course Vital Signs: Vital signs: Vital Signs Temperature 98.1 F 12/09/24 06:46 Pulse Rate 57 L 12/09/24 10:50 Respiratory Rate 17 12/09/24 10:07 Blood Pressure 111/66 12/09/24 10:50 Pulse Oximetry 97 12/09/24 10:50 Oxygen Delivery Me thod Room Air 12/09/24 10:50 MDM - Abdominal Pain Medical Decision Making Due to patient's symptoms and condition IV established basic lab work imaging obtained patient was provided Toradol and Zofran for her associated symptoms will continue to follow. Patient's lab work reveals mild left renal pelvis dilation but no obstructing calculi apparently recently passed kidney stone remainder lab work came back reassuring patient stable for discharge home we will be providing her a limited prescription of Toradol and Zofran for any residual symptoms in which advised her to further follow-up primary care in 2 to 3 days in which instructed to return the interim if any of her symptoms persist or worse. Lab Data 12/09/24 09:18 12/09/24 09:18 Labs/Radiology: Radiology Impressions Abdomen/Pelvis CT 12/09/24 08:55 IMPRESSION: 1. No obstructing renal or ureteral calculi. Mild dilatation of the LEFT renal pelvis similar to the prior studies with mild LEFT ureterectasis although no obstructing calculi. Findings may be due to recently passed calculus 2. Bilateral tiny nonobstructing calyceal tip calculi. 3. Cholecystectomy clips. 4. Normal appendix in the RIGHT lower quadrant. 5. No other acute findings. Laboratory Results WBC 11.48 10^3/uL (3.29-11.43) H 12/09/24 09:18 RBC 5.15 10^6/uL (3.85-5.65) 12/09/24 09:18 Hgb 14.60 g/dL (11.27-16.99) 12/09/24 09:18 Hct 43.7 % (36-47) 12/09/24 09:18 MCV 84.9 fl (85-98) L 12/09/24 09:18 MCH 28.3 pg (27-33) 12/09/24 09:18 MCHC 33.4 g/dL (30-55) 12/09/24 09:18 RDW 12.1 % (12.1-15.1) 12/09/24 09:18 Plt Count 319 10^3/cmm (157-399) 12/09/24 09:18 MPV 9.4 fL (7.4-10.4) 12/09/24 09:18 Neut % (Auto) 73.8 % 12/09/24 09:18 Lymph % (Auto) 16.6 % 12/09/24 09:18 [place] % (Auto) 8.2 % 12/09/24 09:18 Eos % (Auto) 0.6 % 12/09/24 09:18 Baso % (Auto) 0.5 % 12/09/24 09:18 Neut # (Auto) 8.48 10^3/uL (1.8-7.7) H 12/09/24 09:18 Lymph # (Auto) 1.9 10^3/uL (0.8-4.8) 12/09/24 09:18 [place] # (Auto) 0.9 10^3/uL (0.2-0.9) 12/09/24 09:18 Eos # (Auto) 0.1 10^3/uL (0.0-0.8) 12/09/24 09:18 Baso # (Auto) 0.1 10^3/uL (0.0-0.1) 12/09/24 09:18 Nucleated RBC % (auto) 0 % 12/09/24 09:18 Nucleated RBCs # 0.0 /100WBC 12/09/24 09:18 Sodium 140 mmol/L (136-145) 12/09/24 09:18 Potassium 3.9 mmol/L (3.5-5.1) 12/09/24 09:18 Chloride 104 mmol/L (98-107) 12/09/24 09:18 Carbon Dioxide 22 mmol/L (22-29) 12/09/24 09:18 Anion Gap 17.9 (5-19) 12/09/24 09:18 BUN 15 mg/dL (6-20) 12/09/24 09:18 Creatinine 0.7 mg/dL (0.5-0.9) 12/09/24 09:18 GFR Calculation 92.7 mL/min (90-130) 12/09/24 09:18 Glucose 91 mg/dL (65-115) 12/09/24 09:18 Calculated Osmolality 290 mOsm/kg (285-295) 12/09/24 09:18 Calcium 9.3 mg/dL (8.5-10.5) 12/09/24 09:18 Total Bilirubin 0.4 mg/dL (0.15-1.2) 12/09/24 09:18 AST 19 U/L (0-32) 12/09/24 09:18 ALT 7 U/L (0-33) 12/09/24 09:18 Alkaline Phosphatase 60 U/L (35-105) 12/09/24 09:18 C-Reactive Protein 6.4 mg/L (0.0-4.9) H 12/09/24 09:18 Total Protein 7.7 g/dL (6.6-8.7) 12/09/24 09:18 Albumin 4.5 g/dL (3.5-5.2) 12/09/24 09:18 Globulin 3.2 g/dL (1.3-4.6) 12/09/24 09:18 HCG, Qual Negative (Negative) 12/09/24 08:38 Urine Color Yellow (Yellow) 12/09/24 08:38 Urine Appearance Clear (CLEAR) 12/09/24 08:38 Urine pH 6.0 (5-7) 12/09/24 08:38 Ur Specific [place] 1.011 (1.005-1.030) 12/09/24 08:38 Urine Protein 1+ (Negative) A 12/09/24 08:38 Urine Glucose (UA) Negative (Normal) 12/09/24 08:38 Urine Ketones Trace (Negative) 12/09/24 08:38 Urine Blood 3+ (Negative) A 12/09/24 08:38 Urine Nitrate Negative (Negative) 12/09/24 08:38 Urine Bilirubin Negative (Negative) 12/09/24 08:38 Urine Urobilinogen 1.0 mg/dL (Negative) 12/09/24 08:38 Ur Leukocyte Esterase Trace (Negative) A 12/09/24 08:38 Urine RBC >100 /hpf (0-2) H 12/09/24 08:38 Urine WBC 6-10 /hpf (0-5) 12/09/24 08:38 Ur Squamous Epith Cells 0-5 /hpf (0-5) 12/09/24 08:38 Amorphous Sediment Not Reportable 12/09/24 08:38 Urine Bacteria None seen /hpf (NONE) 12/09/24 08:38 Hyaline Casts 2.87 /lpf 12/09/24 08:38 All radiology interpretation(s) finalized by discharge Discharge Plan Discharge Patient Disposition: Home Clinical Impression: Renal colic on left side Condition: Stable Prescriptions: New ketorolac 10 mg tablet 10 mg PO Q8H PRN (Reason: pain) 3 Days Qty: 10 0RF ondansetron 4 mg tablet,disintegrating 4 mg PO Q8H PRN (Reason: nausea and vomiting) 4 Days Qty: 14 0RF No Action trazodone 50 mg tablet 50 mg PO DAILY PRN (Reason: Sleep) famotidine 10 mg tablet 10 mg PO DAILY Ozempic 0.25 mg or 0.5 mg (2 mg/3 mL) pen injector SUBCUT .weekly loratadine [Claritin] 10 mg tablet 10 mg PO DAILY cyanocobalamin (vitamin B-12) 1,000 mcg/mL solution 100 mcg SUBCUT DAILY multivitamin with iron Tablet 1 tab PO DAILY Patient Comments: gummy magnesium glycinate 100 mg magnesium capsule PO DAILY Patient Comments: gummy Digestive Advantage Prob Gummy 250 million cell tablet,chewable 500 mmu cells PO DAILY propranolol 10 mg tablet 30 mg PO DAILY Rx Instructions: 20 mg in am, 10 mg in pm Discharge Orders: Discharge ED (Routine); Ordered 12/09/24 Ordered By: Jovan Mckeon Referrals: Shanda Cervantes MD [Primary Care Provider, Internal Medicine] - 4-7 days Discharge Diet: Advance as tolerated Discharge Activity: Increase activity as tolerated Patient Instructions: Abdominal Pain (ED), Renal Colic (ED) Activity Restrictions/Additional Instructions: Take medications as prescribed please for the follow-up primary care in 3 to 5 days as needed and which return the interim if any of your symptoms persist or worse your lab work and imaging reveals a recently passed kidney stone on the left side. 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
[2024-12-09] MEDS: ketorolac 30 mg/mL INJ IVP (09:15)
[2024-12-09] MEDS: sodium chloride 0.9% 500 ML IV (09:15)
[2024-12-09] MEDS: ondansetron 2 mg/ML SDV 2 mL 4 MG IVP (09:15)
[2024-12-09 09:23] LABS: Basophils # 0.1 10^3/uL (0.0-0.1); Basophils % 0.5 %; Eosinophils # 0.1 10^3/uL (0.0-0.8); Eosinophils % 0.6 %; Hematocrit 43.7 % (36-47); Lymphocytes # 1.9 10^3/uL (0.8-4.8); Lymphocytes % 16.6 %; Mean Corpuscular HGB Conc 33.4 g/dL (30-55); Mean Corpuscular Hemoglobin 28.3 pg (27-33); Mean Corpuscular Volume 84.9 fl (85-98); Mean Platelet Volume 9.4 fL (7.4-10.4); Monocytes # 0.9 10^3/uL (0.2-0.9); Monocytes % 8.2 %; Neutrophils # 8.48 10^3/uL (1.8-7.7); Neutrophils % 73.8 %; Nucleated Red Blood Cells % 0 %; Platelet Count 319 10^3/cmm (157-399); Red Blood Count 5.15 10^6/uL (3.85-5.65); Red Cell Distribution Width 12.1 % (12.1-15.1); White Blood Count 11.48 10^3/uL (3.29-11.43)
[2024-12-09 09:31] LABS: HCG Qualitative Urine. Negative (Negative)
[2024-12-09 09:34] LABS: Add Urine Culture? Yes
[2024-12-09 09:37] VITALS: BP 101/63; PULSE 81; O2SAT 100
[2024-12-09 09:42] LABS: Alanine Aminotransferase 7 U/L (0-33); Albumin Level 4.5 g/dL (3.5-5.2); Alkaline Phosphatase 60 U/L (35-105); Aspartate Amino Transferase 19 U/L (0-32); Blood Urea Nitrogen 15 mg/dL (6-20); C Reactive Protein 6.4 mg/L (0.0-4.9); Calcium 9.3 mg/dL (8.5-10.5); Carbon Dioxide 22 mmol/L (22-29); Chloride 104 mmol/L (98-107); Globulin 3.2 g/dL (1.3-4.6); Glomerular Filtration Rate 92.7 mL/min (90-130); Glucose 91 mg/dL (65-115); Osmolality Calculated 290 mOsm/kg (285-295); Sodium 140 mmol/L (136-145); Total Bilirubin 0.4 mg/dL (0.15-1.2); Total Protein 7.7 g/dL (6.6-8.7)
[2024-12-09 10:07] VITALS: RESP 17; O2SAT 99
[2024-12-09] MEDS: fentaNYL 50 mcg/mL INJ 2mL IVP (10:07)
[2024-12-09 10:23] LABS: Anion Gap 17.9 (5-19); Potassium 3.9 mmol/L (3.5-5.1)
[2024-12-09 10:50] VITALS: BP 111/66; PULSE 57; O2SAT 97
[2024-12-09 11:44] VITALS: BP 101/69; PULSE 69; O2SAT 98
== END 2024-12-09 11:46 | disposition home or self-care (01) ==
PROVIDERS: Emergency Provider Emergency Medicine; PCP Internal Medicine
DX: N23 Unspecified renal colic (principal); Z85.3 Personal history of malignant neoplasm of breast
CPT/HCPCS: 36415; 74176; 80053; 81001; 81025; 85025; 86140; 87086; 96361; 96374; 96375; 99285; J1885; J2405; J3010; J7040